=== PATIENT | female | born 1980 | race Caucasian/White ===

== ENCOUNTER 2017-12-11 18:29 | Emergency (ER) | payer MEDICAID ==
[2017-12-11 19:45] VITALS: BP 149/89
[2017-12-11] MEDS ORDERED: HYDROmorphone 0.5 MG/0.5 ML Syringe IVPUSH ONE ×2 (20:04→22:39)
--- NOTE | 2017-12-11 20:10 | EDM.PDOC ---
ED HPI GENERAL MEDICAL PROBLEM - General Chief Complaint: Abdominal Pain Stated Complaint: SEVERE STOMACH PAIN Time Seen by Provider: 12/11/17 19:45 Source of Information: Reports: Patient History Limitations: Reports: No Limitations - History of Present Illness INITIAL COMMENTS - FREE TEXT/NARRATIVE: 37-year-old female with epigastric and upper abdominal pain that has been worsening over the past 10-12 hours. She had a normal bowel movement this morning, but started developing pain around 10 AM and as the day has gone on it' s become worse, persistent, did not respond to antacids or anti-inflammatories and is now starting to radiate into her back. It was hurting to take a deep breath, that seems to be a little better. She denies abdominal distention, fevers, urinary symptoms and she has not had these problems in the past. Onset: Gradual Duration: Hour(s): (10 hours) Location: Reports: Abdomen Severity: Moderate Associated Symptoms: Reports: Loss of Appetite. Denies: Chest Pain, Fever/ Chills, Headaches, Nausea/Vomiting, Shortness of Breath bilat abd pain Pain Score (Numeric/FACES): 7 - Related Data Allergies Allergy/AdvReac Type Severity Reaction Status Date / Time codeine Allergy Abdominal Verified 12/11/17 19:47 Pain lisinopril Allergy Cough Verified 12/11/17 19:47 Home Meds: Home Meds Cholecalciferol (Vitamin D3) [Vitamin D-3] 5,000 unit PO DAILY 12/13/13 [History ] Furosemide [Lasix] 20 mg PO DAILY PRN 12/13/13 [History] Vitamin B Complex 1 each PO DAILY 12/13/13 [History] Iron,Carbonyl/Ascorbic Acid [Iron 100-Vitamin C Tablet] 1 tab PO DAILY 12/03/14 [History] Multivitamin [Multi-Vitamin Daily] 1 tab PO DAILY 12/03/14 [History] Cyanocobalamin (Vitamin B-12) [Vitamin B-12] 1,000 mcg SL DAILY 12/11/17 [ History] Past Medical History Respiratory History: Reports: Bronchitis, Recurrent 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: Neurological History: Reports: Migraines Endocrine/Metabolic History: Reports: Obesity/BMI 30+, Vitamin D Deficiency Hematologic History: Reports: Anemia - Past Surgical History GI Surgical History: Reports: Bariatric Procedure, Cholecystectomy Female Surgical History: Reports: Other (See Below) Other Female Surgeries/Procedures: ovarian cyst removed Social & Family History - Tobacco Use Smoking Status *Q: Current Every Day Smoker Years of Tobacco use: 18 Packs/Tins Daily: 0.5 - Recreational Drug Use Recreational Drug Use: No ED ROS GENERAL - Review of Systems Review Of Systems: See Below Constitutional: Reports: Malaise. Denies: Fever, Chills HEENT: Reports: No Symptoms Respiratory: Denies: Shortness of Breath, Pleuritic Chest Pain Cardiovascular: Denies: Chest Pain GI/Abdominal: Reports: Abdominal Pain, Decreased Appetite. Denies: Constipation , Diarrhea, Nausea, Vomiting : Reports: Other (Some vaginal spotting, she is on the Depo-Provera control and has not missed any doses.). Denies: Dysuria, Flank Pain, Frequency Skin: Reports: No Symptoms Neurological: Reports: No Symptoms Psychiatric: Reports: No Symptoms ED EXAM, GI/ABD - Physical Exam Exam: See Below General Appearance: Alert, Mild Distress (Looks fairly uncomfortable) Eyes: Bilateral: Normal Appearance (No jaundice) Respiratory/Chest: No Respiratory Distress, Lungs Clear Cardiovascular: Regular Rate, Rhythm GI/Abdominal Exam: Normal Bowel Sounds, Soft, Tender (Fairly tender across the upper abdomen, especially directly over the epigastric area with mild guarding and rebound tenderness) Extremities: No: Pedal Edema Neurological: Alert, Oriented Skin Exam: Warm, Dry Course - Vital Signs Last Recorded V/S: Last Vital Signs Temp 97.8 F 12/11/17 19:51 Pulse 78 12/11/17 19:51 Resp 18 12/11/17 19:51 BP 149/89 H 12/11/17 19:51 Pulse Ox 98 12/11/17 19:51 - Orders/Labs/Meds Orders: Active Orders 24 hr Category Date Time Status Abdomen Pelvis w Cont [CT] Stat Exams 12/11/17 20:56 Taken UA W/MICROSCOPIC [URIN] Urgent Lab 12/11/17 21:33 Ordered Labs: Laboratory Tests 12/11/17 12/11/17 12/11/17 Range/Units 20:16 20:16 20:16 WBC 7.8 (4.5-11.0) K/uL RBC 4.56 (3.30-5.50) M/uL Hgb 14.4 (12.0-15.0) g/dL Hct 42.7 (36.0-48.0) % MCV 94 (80-98) fL MCH 32 H (27-31) pg MCHC 34 (32-36) % Plt Count 168 (150-400) K/uL Neut % (Auto) 52 (36-66) % Lymph % (Auto) 28 (24-44) % Atkinson % (Auto) 10 H (2-6) % Eos % (Auto) 10 H (2-4) % Baso % (Auto) 1 (0-1) % Sodium 139 L (140-148) mmol/L Potassium 3.5 L (3.6-5.2) mmol/L Chloride 105 (100-108) mmol/L Carbon Dioxide 24 (21-32) mmol/L Anion Gap 13.5 (5.0-14.0) mmol/L BUN 5 L D (7-18) mg/dL Creatinine 0.6 (0.6-1.0) mg/dL Est Cr Clr Drug Dosing 144.88 mL/min Estimated GFR (MDRD) > 60 (>60) Glucose 94 (74-106) mg/dL Lactic Acid 0.8 (0.4-2.0) mmol/L Calcium 8.0 L (8.5-10.1) mg/dL Total Bilirubin 0.3 (0.2-1.0) mg/dL AST 17 (15-37) U/L ALT 23 (12-78) U/L Alkaline Phosphatase 87 (46-116) U/L Total Protein 5.8 L (6.4-8.2) g/dL Albumin 3.3 L (3.4-5.0) g/dL Globulin 2.5 (2.3-3.5) g/dL Albumin/Globulin Ratio 1.3 (1.2-2.2) Amylase 87 (25-115) U/L Lipase 272 (73-393) U/L Urine Color Urine Appearance Urine pH (4.5-8.0) Ur Specific [place] (1.008-1.030) Urine Protein (NEGATIVE) mg/dL Urine Glucose (UA) (NEGATIVE) mg/dL Urine Ketones (NEGATIVE) mg/dL Urine Occult Blood (NEGATIVE) Urine Nitrite (NEGATIVE) Urine Bilirubin (NEGATIVE) Urine Urobilinogen (NORMAL) mg/dL Ur Leukocyte Esterase (NEGATIVE) Urine RBC (0-5) Urine WBC (0-5) Ur Epithelial Cells Amorphous Sediment Urine Bacteria Urine Mucus 12/11/17 Range/Units 21:33 WBC (4.5-11.0) K/uL RBC (3.30-5.50) M/uL Hgb (12.0-15.0) g/dL Hct (36.0-48.0) % MCV (80-98) fL MCH (27-31) pg MCHC (32-36) % Plt Count (150-400) K/uL Neut % (Auto) (36-66) % Lymph % (Auto) (24-44) % Atkinson % (Auto) (2-6) % Eos % (Auto) (2-4) % Baso % (Auto) (0-1) % Sodium (140-148) mmol/L Potassium (3.6-5.2) mmol/L Chloride (100-108) mmol/L Carbon Dioxide (21-32) mmol/L Anion Gap (5.0-14.0) mmol/L BUN (7-18) mg/dL Creatinine (0.6-1.0) mg/dL Est Cr Clr Drug Dosing mL/min Estimated GFR (MDRD) (>60) Glucose (74-106) mg/dL Lactic Acid (0.4-2.0) mmol/L Calcium (8.5-10.1) mg/dL Total Bilirubin (0.2-1.0) mg/dL AST (15-37) U/L ALT (12-78) U/L Alkaline Phosphatase (46-116) U/L Total Protein (6.4-8.2) g/dL Albumin (3.4-5.0) g/dL Globulin (2.3-3.5) g/dL Albumin/Globulin Ratio (1.2-2.2) Amylase (25-115) U/L Lipase (73-393) U/L Urine Color Yellow Urine Appearance Clear Urine pH 7.0 (4.5-8.0) Ur Specific [place] 1.010 (1.008-1.030) Urine Protein Negative (NEGATIVE) mg/dL Urine Glucose (UA) Normal (NEGATIVE) mg/dL Urine Ketones Negative (NEGATIVE) mg/dL Urine Occult Blood Moderate (NEGATIVE) Urine Nitrite Negative (NEGATIVE) Urine Bilirubin Negative (NEGATIVE) Urine Urobilinogen Normal (NORMAL) mg/dL Ur Leukocyte Esterase Negative (NEGATIVE) Urine RBC 0-5 (0-5) Urine WBC 0-5 (0-5) Ur Epithelial Cells Few Amorphous Sediment Not seen Urine Bacteria Few Urine Mucus Not seen Meds: Medications Discontinued Medications Generic Name Dose Route Start Last Admin Trade Name Raeann PRN Reason Stop Dose Admin Hydromorphone HCl 0.5 mg 12/11/17 20:04 12/11/17 20:32 Dilaudid IVPUSH 12/11/17 20:05 0.5 mg ONETIME ONE Administration Hydromorphone HCl 0.5 mg 12/11/17 22:39 12/11/17 22:53 Dilaudid IVPUSH 12/11/17 22:40 0.5 mg ONETIME ONE Administration Sodium Chloride 1,000 mls @ 500 mls/hr 12/11/17 20:15 12/11/17 20:31 Normal Saline IV 500 mls/hr ASDIRECTED АНДРЕЙ Administration Sodium Chloride 80 mls @ 3 mls/sec 12/11/17 21:30 12/11/17 21:23 Normal Saline IV 3 mls/sec ASDIRECTED АНДРЕЙ Administration Iopamidol 150 ml 12/11/17 21:30 12/11/17 21:23 Isovue-300 (61%) IV 150 ml . DIRECTED АНДРЕЙ Administration - Re-Assessments/Exams Free Text/Narrative Re-Assessment/Exam: 12/11/17 20:10 An IV was started, she'll be hydrated with normal saline and given 0.5 mg of IV Dilaudid. CBC, CMP, lactic acid amylase and lipase were obtained, patient will need a CT scan after labs return. 12/11/17 20:57 Patient improved initially after the dose of Dilaudid but then returned. Labs returned very reassuring with a normal white count, hemoglobin and lactic acid. Electrolytes are normal so patient will be scanned with IV contrast, the abdomen and pelvis. 12/11/17 22:41 CT scan showed a right ovarian cyst, uncomplicated and also chronic renal cyst but nothing to explain acute abdominal pain. The patient's pain persisted and she was given an additional 0.5 mg of IV Dilaudid and the rest of the fluids. I discussed her case with Dr. Soto, he agreed with admission if the patient desired to stay but she elected to try some oral pain medication at home over the next 12-24 hours and return if it doesn't improve. She'll return sooner if worsening. Departure - Departure Time of Disposition: 23:06 Disposition: Home, Self-Care 01 Condition: Fair Clinical Impression: Abdominal pain Qualifiers: Abdominal location: epigastric Qualified Code(s): R10.13 - Epigastric pain - Discharge Information Instructions: Abdominal Pain, Adult, [id number] Referrals: Cecile Falk PA-C [Primary Care Provider] - Forms: ED Department Discharge Care Plan Goals: Use pain medication as prescribed if needed. Increase activity and diet as tolerated and recheck in the next 24 hours if not improving satisfactorily, or return anytime if worsening. - My Orders Last 24 Hours: My Active Orders 12/11/17 20:56 Abdomen Pelvis w Cont [CT] Stat 12/11/17 21:33 UA W/MICROSCOPIC [URIN] Urgent - Assessment/Plan Last 24 Hours: My Active Orders 12/11/17 20:56 Abdomen Pelvis w Cont [CT] Stat 12/11/17 21:33 UA W/MICROSCOPIC [URIN] Urgent
[2017-12-11] MEDS ORDERED: Sodium Chloride 0.9% 1,000 ML IV SCH (20:15)
[2017-12-11] MEDS ORDERED: Iopamidol 612 MG/ML 150 ML Bottle IV SCH (21:30)
[2017-12-11] MEDS ORDERED: Sodium Chloride 0.9% 80 ML IV SCH (21:30)
== END 2017-12-11 22:58 | disposition home or self-care (01) ==
LOC: JP.ED 18:29
DX: R10.13 Epigastric pain (principal); R10.11 Right upper quadrant pain; R10.12 Left upper quadrant pain; F17.210 Nicotine dependence, cigarettes, uncomplicated; Z79.899 Other long term (current) drug therapy; Z88.5 Allergy status to narcotic agent; Z88.8 Allergy status to other drugs, medicaments and biological substances
CPT/HCPCS: 36415; 74177; 80053; 81001; 82150; 83605; 83690; 85025; 99284; J1170; J7030

== ENCOUNTER 2017-12-13 06:03 | Day surgery (SDC) | payer MEDICAID ==
[2017-12-13] MEDS ORDERED: Propofol 200 MG/20 ML SDV ONE (07:23)
[2017-12-13] MEDS ORDERED: fentaNYL 100 MCG/2 ML SDV ONE (07:23)
[2017-12-13] MEDS ORDERED: Midazolam 1 MG/ML 2 ML SDV ONE (07:23)
[2017-12-13 08:56] VITALS: BP 149/90
--- NOTE | 2017-12-14 14:12 | OR ---
DATE OF PROCEDURE: 12/13/2017 PREOPERATIVE DIAGNOSIS: Postprandial abdominal pain, status post Luis-en-Y gastric bypass. POSTOPERATIVE DIAGNOSIS: Normal upper gastrointestinal endoscopic examination, status post Luis-en-Y gastric bypass. OPERATIVE PROCEDURES: Upper GI endoscopy with biopsies of gastric pouch for CLOtest. ANESTHESIA: IV sedation. INDICATION FOR PROCEDURE: This is a 37-year-old status post previous Luis-en-Y gastric bypass, presenting with postprandial abdominal pain. The pain does begin a little bit after eating and is somewhat suggestive of partial small bowel obstruction. To rule out a more proximal area of pathology, she is to undergo an upper GI endoscopy with biopsies and/or dilation as indicated. Potential risks including bleeding and perforation were discussed, and the patient wishes to proceed. DETAILS OF PROCEDURE: The patient was taken to the operating room and placed in a left lateral decubitus position. IV sedation was administered, after which the upper GI endoscope was passed orally through the length of the esophagus and into the gastric pouch, and from there through the gastrojejunostomy roughly 20 cm into the Luis limb. Findings were entirely normal with no areas of inflammation or stricturing. It would appear that the patient's pathology is more distal in the GI tract by history, most likely a partial small bowel obstruction. The biopsies were obtained from the gastric pouch to evaluate the patient's H. pylori status. Minimal bleeding from the biopsy site was seen, and the procedure then concluded. The plan was discussed with the patient postoperatively. The plan would be to proceed with a laparoscopy, if possible laparotomy with release of small bowel obstruction and possible bowel resection. Ideally, this will be done tomorrow, but she has a trip to [place] set up with her children, with which she would lose the entire investment. She has been tolerating liquids, and she will stay on a liquid diet until that time. She is instructed to return sooner if her symptoms become more severe. Otherwise, rescheduled for 12/18/2017, for the above-stated procedure. Fabien Soto MD /[id number]
== END 2017-12-13 09:08 | disposition home or self-care (01) ==
LOC: JP.SDS 06:03
PROVIDERS: ATTEND Surgery
DX: R10.9 Unspecified abdominal pain (principal); Z98.84 Bariatric surgery status
CPT/HCPCS: 43239; 87081; J2250; J2704; J3010

== ENCOUNTER 2017-12-18 09:32 | Inpatient (IN) | payer MEDICAID ==
[~2017-12-18 09:32] MED LIST: Acetaminophen 500 MG Tab PO ONE; Bupivacaine 0.5%/EPINEPHrine 1:200,000 50 ML MDV ONE; Celecoxib 200 MG Cap PO ONE; Dextrose 5%-Lactated Ringers 1,000 ML IV SCH; Gabapentin 300 MG Cap PO ONE; Scopolamine 1.5 MG Transdermal Patch TOP SCH
[2017-12-18] MEDS ORDERED: fentaNYL 250 MCG/5 ML SDV ONE (10:49)
[2017-12-18] MEDS ORDERED: Neostigmine Methylsulfate 1 MG/ML 5 ML Syringe ONE (10:53)
[2017-12-18] MEDS ORDERED: Rocuronium 50 MG/5 ML Vial ONE (10:53)
[2017-12-18] MEDS ORDERED: Ondansetron 4 MG/2 ML SDV ONE (10:53)
[2017-12-18] MEDS ORDERED: Succinylcholine 200 MG/10 ML MDV ONE (10:53)
[2017-12-18] MEDS ORDERED: Dexamethasone 4 MG/ML SDV ONE (10:53)
[2017-12-18] MEDS ORDERED: Glycopyrrolate 0.2 MG/ML 5 ML MDV ONE (10:53)
[2017-12-18] MEDS ORDERED: Propofol 200 MG/20 ML SDV ONE (10:53)
[2017-12-18] MEDS ORDERED: Lidocaine 0.4%/D5W 2 GM/500 ML BAG IV SCH ×2 (11:15)
[2017-12-18] MEDS ORDERED: Lidocaine 2% 100 MG/5 ML Syringe IVPUSH ONE (11:15)
[2017-12-18] MEDS ORDERED: Ropivacaine 50 ML, Dexamethasone 8 MG, EPINEPHrine 0.4 MG, Sodium Chloride 0.9% 27.6 ML NERVRT SCH ×4 (11:15)
[2017-12-18] MEDS ORDERED: Ketamine 500 MG/5 ML MDV IV SCH (11:15)
[2017-12-18] MEDS: cefOXitin 2 GM in Sodium Chloride 0.9% 50 ML IV ONE ×2 (12:30→19:40)
[2017-12-18] MEDS ORDERED: Meropenem 500 MG SDV ONE (13:24)
[2017-12-18] MEDS ORDERED: Lactated Ringers 1,000 ML ONE (13:25)
[2017-12-18] MEDS ORDERED: fentaNYL 100 MCG/2 ML SDV IVPUSH ONE (14:03)
[2017-12-18] MEDS ORDERED: hydrOXYzine HCl 100 MG/2 ML SDV IM ONE (14:03)
[2017-12-18] MEDS ORDERED: Metoclopramide 10 MG/2 ML SDV IVPUSH PRN (16:00)
[2017-12-18] MEDS ORDERED: Labetalol 20 MG/4 ML Syringe IVPUSH PRN (16:00)
[2017-12-18] MEDS ORDERED: Ondansetron 4 MG/2 ML SDV IVPUSH PRN (16:00)
[2017-12-18] MEDS ORDERED: diphenhydrAMINE 50 MG/ML SDV IVPUSH PRN (16:00)
[2017-12-18] MEDS: Acetaminophen Soln 650 MG/20.3 ML UD Cup PO SCH ×2 (16:15→22:23)
[2017-12-18] MEDS ORDERED: MVI, Adult with Vitamin K 10 ML, Thiamine 200 MG, Chromium/Copper/Mang/Selen/Zn 1 ML in... IV SCH ×4 (17:00)
[2017-12-18] MEDS: cefOXitin 2 GM in Sodium Chloride 0.9% 50 ML IV SCH ×2 (17:23→23:36)
[2017-12-18] MEDS ORDERED: Pantoprazole 40 MG Vial IVPUSH SCH (18:00)
[2017-12-18] MEDS: Gabapentin 250 MG/5 ML Solution ML 470 ML Bottle PO SCH (20:22)
[2017-12-18] MEDS: hydrOXYzine HCl 100 MG/2 ML SDV IM PRN (20:23)
[2017-12-18] MEDS: Heparin Sodium 5,000 Units/ML Vial SUBCUT SCH (20:23)
[2017-12-18] MEDS: Dextrose 5%-Lactated Ringers 1,000 ML IV SCH (23:33)
[2017-12-19] MEDS: hydrOXYzine HCl 100 MG/2 ML SDV IM PRN ×2 (02:40→06:56)
[2017-12-19] MEDS ORDERED: Iohexol 647 MG/ML 50 ML SDV PO PRN (02:45)
[2017-12-19] MEDS: Acetaminophen Soln 650 MG/20.3 ML UD Cup PO SCH ×4 (03:34→21:02)
[2017-12-19] MEDS: cefOXitin 2 GM in Sodium Chloride 0.9% 50 ML IV SCH (05:17)
[2017-12-19] MEDS: Dextrose 5%-Lactated Ringers 1,000 ML IV SCH (05:18)
[2017-12-19] MEDS: Gabapentin 250 MG/5 ML Solution ML 470 ML Bottle PO SCH ×3 (08:21→21:02)
[2017-12-19] MEDS: Celecoxib 200 MG Cap PO SCH (08:21)
[2017-12-19] MEDS: Heparin Sodium 5,000 Units/ML Vial SUBCUT SCH ×2 (08:21→20:54)
[2017-12-19] MEDS: SCOPOLAMINE PATCH CHECK TOP SCH (08:22)
[2017-12-19] MEDS ORDERED: hydrOXYzine HCl 100 MG/2 ML SDV IM PRN (09:09)
[2017-12-19] MEDS ORDERED: Dextrose 5%-Lactated Ringers 1,000 ML IV SCH (09:15)
[2017-12-19] MEDS: Docusate Sodium 100 MG Cap PO SCH ×2 (09:58→20:55)
[2017-12-19] MEDS: Magnesium Sulfate/Water 2 GM in Premix Bag 1 BAG IV SCH ×2 (09:58→15:47)
[2017-12-19] MEDS ORDERED: Sodium Ferric Gluconate Cmplex 250 MG in Sodium Chloride 0.9% 100 ML IV SCH (10:30)
[2017-12-19] MEDS ORDERED: hydrOXYzine HCl 25 MG Tab PO PRN (11:00)
[2017-12-19] MEDS: HYDROmorphone 2 MG Tab PO PRN ×3 (11:25→22:17)
[2017-12-19] MEDS ORDERED: MVI, Adult with Vitamin K 10 ML, Thiamine 200 MG, Chromium/Copper/Mang/Selen/Zn 1 ML in... IV SCH ×4 (16:00)
[2017-12-19] MEDS ORDERED: Pantoprazole 40 MG Tab.CR PO SCH (18:00)
[2017-12-19] MEDS ORDERED: Pantoprazole 40 MG Delayed-Release Granules 1 Packet PO SCH (18:00)
[2017-12-20] MEDS: Acetaminophen Soln 650 MG/20.3 ML UD Cup PO SCH (04:06)
[2017-12-20] MEDS: HYDROmorphone 2 MG Tab PO PRN ×3 (04:06→11:30)
[2017-12-20 07:25] VITALS: BP 140/74
[2017-12-20] MEDS ORDERED: Magnesium Hydroxide 400 MG/5 ML Susp 30 ML Cup PO PRN (08:07)
[2017-12-20] MEDS: Celecoxib 200 MG Cap PO SCH (08:20)
[2017-12-20] MEDS: Gabapentin 250 MG/5 ML Solution ML 470 ML Bottle PO SCH (08:20)
[2017-12-20] MEDS: Docusate Sodium 100 MG Cap PO SCH (08:20)
[2017-12-20] MEDS: SCOPOLAMINE PATCH CHECK TOP SCH (08:23)
[2017-12-20] MEDS ORDERED: Sodium Ferric Gluconate Cmplex 250 MG in Sodium Chloride 0.9% 100 ML IV ONE (09:00)
[2017-12-20] MEDS ORDERED: Cyanocobalamin (Vitamin B12) 1,000 MCG/ML SDV IM ONE (09:00)
--- NOTE | 2017-12-20 10:37 | DISCH ---
FINAL DIAGNOSES: 1. Partial small bowel obstruction secondary to strictured junction of Luis limb and jejunojejunostomy along with small bowel volvulus. 2. Distortion of small bowel by traction of mesentery of biliopancreatic limb stump. 3. Bariatric surgery status. 4. Chronic iron deficiency. OPERATIVE PROCEDURES: These were done on 12/18/2017, exploratory laparotomy with; 1. Reduction of small bowel volvulus and closure of internal hernia. 2. Revision of jejunojejunostomy component of Luis-en-Y gastric bypass. 3. Separate resection of small bowel biliopancreatic limb stump. HOSPITAL COURSE: This is a 37-year-old status post Luis-en-Y gastric bypass, presenting with postprandial crampy pain. This occurred primarily to solid intake. After an upper endoscopy last weekend found essentially no problems, it would be clinically deemed that the patient likely had a partial small bowel obstruction. She had to go on a trip and stayed on liquid diet up until the time of readmission. On 12/18/2017, she underwent a limited laparotomy with the above findings being identified. Postoperatively, the patient has done well. She is tolerating a step-3 diet, i.e. a soft solid diet without difficulty and will be discharged home with a combination of Tylenol, gabapentin, and Celebrex. The latter two for 2 weeks and the Dilaudid on a p.r.n. basis. She is passing some flatus. No bowel movement as of yet. She will go home with some milk of magnesia to help stimulate bowels and instructed to stay on step-3 diet until the first appointment, which will be with Cecile Falk at [facility] on 12/28/2017. The patient also has marginally low magnesium of 1.7, and we will send her home with a 1- month supply of magnesium oxide for supplementation as well. With the patient's chronically low iron levels, the patient was given 2 doses of iron gluconate complex, that being a total of 500 mg, as in the past she has had trouble maintaining adequate iron levels, and there have been problems with insurance covering this as an outpatient. The patient will be discharged today after the iron infusion and will follow up with Cecile Falk on 12/28/2017.
--- NOTE | 2017-12-20 11:33 | PN ---
DATE OF SERVICE: 12/19/2017 The patient has been afebrile with stable vital signs. Pain control has been satisfactory. We will go over to exclusively oral pain medication today. She can go up to step-3 diet. Her upper GI x-ray looks good. Magnesium is low, and I will supplement it. Her irons in the past have required IV supplementation, so we will give her 2 doses of ferric gluconate complex, one today and one tomorrow. She may be ready for discharge home tomorrow. Fabien Soto MD /[id number]
--- NOTE | 2017-12-21 08:53 | CR ---
UGI wo KUB HISTORY: eval R -Y GBP FINDINGS: After administration of oral contrast, upright views were obtained. Post operative changes gastric bypass. Surgical drains in place. No evidence for leak. Contrast passes freely into proximal small bowel loops. IMPRESSION: No evidence for leak or obstruction.
--- NOTE | 2017-12-21 09:34 | OR ---
DATE OF PROCEDURE: 12/18/2017 PREOPERATIVE DIAGNOSIS: Partial small bowel obstruction. POSTOPERATIVE DIAGNOSIS: Partial small bowel obstruction associated with small bowel volvulus and distortion of the small bowel by traction of biliopancreatic limb stump at jejunojejunostomy. OPERATIVE PROCEDURES: Exploratory laparotomy with: 1. Reduction of volvulus and closure of internal hernia (34430). 2. Revision of jejunojejunostomy component of Luis-en-Y gastric bypass (94728). 3. Separate resection of small bowel biliopancreatic limb stump (99953). ANESTHESIA: General. MEDICAL RECEPTIONIST MEDICAL ASSISTANT: Cecile Falk PA-C. INDICATIONS FOR PROCEDURE: This is a 37-year-old presenting with a picture of a partial small bowel obstruction. The plan is to proceed with an exploratory laparotomy with limited incision and lysis of adhesions, reduction of any volvulus that might be encountered and small bowel resection as indicated. As reviewed with the patient, should the jejunojejunostomy need to be revised, we would alter the limb length somewhat to allow more sustained weight loss. Potential risks per se including bleeding, infection, leaks from various GI tract closures, possible recurrence of the problem over time, as well as the remote possibility of cardiopulmonary, septic, or hemorrhagic complications leading to were discussed, and the patient wishes to proceed. DETAILS OF PROCEDURE: The patient was taken to the operating room, and after general endotracheal anesthetic was induced, bilateral subcostal transversus abdominis plane blocks were placed using continuous ultrasound. Following this, the abdomen was prepped and draped, and a midline incision from the umbilicus roughly a handsbreadth toward the subxiphoid was made and carried down through the skin, subcutaneous tissue, fascia, and into the peritoneal cavity. At this point, general exploration was undertaken. The patient was noted to have a small bowel volvulus between the limbs of the jejunojejunostomy with roughly half of the small bowel being prolapsed through that area. After that area was reduced, the patient was noted to have a fairly pronounced narrowing of the point where the jejunojejunostomy was performed with the Luis limb coming in at a sharp angle. Due to this being present for some time, this appeared to be somewhat of a persistent defect, and at that point, we decided to proceed with revision of the jejunojejunostomy. At this point, the small bowel was divided at the point where it entered the jejunojejunostomy with the MONI stapler. A small amount of small bowel was then resected to allow adequate mobility of the bowel for subsequent anastomosis. The limb lengths were then marked out, and the final limb lengths after the revision of the jejunojejunostomy had a Luis limb of 140 cm, common limb of 170 cm, and biliopancreatic limb of 210 cm. At the new revised jejunojejunostomy, this was then constructed by anastomosing what had been the distal end of the Luis limb to the continuation of small bowel somewhat distal to the previous jejunojejunostomy with internal firing of the Endo-MONI 60 mm stapler. The common opening was then closed transversely with the same stapler, angles anastomosed, and mesenteric defect approximated with some 3-0 Vicryl stitch. Exploration at this point showed the anastomosis between the biliopancreatic limb and what had been the origin of the common limb was still somewhat distorted by traction of the stump of the biliopancreatic limb and its mesentery, causing a posterior and leftward distortion of that remaining anastomosis. Given this, the biliopancreatic limb stump was then resected as well with MOIN stapler. The underlying mesentery was divided with mesenteric load, and that appeared to satisfactorily free up that previous site of the anastomosis from any significant angulation. Both mesenteric defects at this point were then closed with some 2- 0 silk stitch to provide some permanency for those closures. The abdomen was then irrigated with antibiotic-containing saline solution. The midline incision was then closed with #2 Vicryl stitch, subcutaneous tissue with 2 layers of 3-0 Vicryl stitch, and the skin with annel. Dressing was applied. The patient was taken to the recovery room in satisfactory condition. Physician reproductive healthcare assistant, Cecile Falk played an essential role in assisting in this case, helping to position the patient, retract structures as needed, as well as suturing and cutting sutures when indicated. Her presence improved patient safety and decreased the operative time. Fabien Soto MD /[id number]
== END 2017-12-20 11:54 | disposition home or self-care (01) | DRG 328 ==
LOC: JP.SDS 09:32 → JP.SDSSCHI 09:32 → EDSTATUS 12:45 → JP.2SS 14:00
PROVIDERS: ADMIT Surgery; ATTEND Surgery
PROC: 0DSA0ZZ Reposition Jejunum, Open Approach (ICD-10-PCS; principal; 2017-12-18)
PROC: 0DB90ZZ Excision of Duodenum, Open Approach (ICD-10-PCS; 2017-12-18)
PROC: 0DBA0ZZ Excision of Jejunum, Open Approach (ICD-10-PCS; 2017-12-18)
PROC: 0DQV0ZZ Repair Mesentery, Open Approach (ICD-10-PCS; 2017-12-18)
PROC: 3E0T3BZ Introduction of Anesthetic Agent into Peripheral Nerves and Plexi, Percutaneous Approach (ICD-10-PCS; 2017-12-18)
DX: K56.2 Volvulus (principal); K59.8 Other specified functional intestinal disorders; K46.9 Unspecified abdominal hernia without obstruction or gangrene; F17.210 Nicotine dependence, cigarettes, uncomplicated; E55.9 Vitamin D deficiency, unspecified; Z98.84 Bariatric surgery status; Z88.5 Allergy status to narcotic agent; Z88.8 Allergy status to other drugs, medicaments and biological substances; E61.1 Iron deficiency; E83.42 Hypomagnesemia
CPT/HCPCS: 36415; 74240; 74240-26; 80053; 82728; 83735; 84100; 85025; 88307; A9270-GY; C9113; J0171; J0330; J0694; J1100; J1644; J2001; J2185; J2405; J2704; J2710; J2795; J2916; J3010; J3410; J3411; J3420; J3475; J7030; J7042; J7050; J7120; Q9967

== ENCOUNTER 2018-01-04 16:44 | Emergency (ER) | payer MEDICAID ==
[2018-01-04 18:01] VITALS: BP 130/71
[2018-01-04] MEDS ORDERED: Sodium Chloride 0.9% 10 ML Syringe FLUSH PRN (18:31)
[2018-01-04] MEDS ORDERED: HYDROmorphone 0.5 MG/0.5 ML Syringe IVPUSH ONE (18:31)
[2018-01-04] MEDS ORDERED: Metoclopramide 10 MG/2 ML SDV IV ONE (18:32)
--- NOTE | 2018-01-04 18:38 | EDM.PDOC ---
ED HPI GENERAL MEDICAL PROBLEM - General Chief Complaint: Abdominal Pain Stated Complaint: ABDOMINAL PAIN Time Seen by Provider: 01/04/18 18:19 Source of Information: Reports: Patient, Old Records, RN Notes Reviewed History Limitations: Reports: No Limitations - History of Present Illness INITIAL COMMENTS - FREE TEXT/NARRATIVE: Rudi Dropped off by her mother Chief complaint Abdominal pain History of present illness 37-year-old female, since this morning left-sided and upper abdominal pain. No change in her nausea that she's had for the last few mornings. No vomiting no change in bowel movements. Hospitalized recently and had surgery December 18, 2017 for revision of her Luis-en- Y and correction of a volvulus, this is the first episode of small bowel obstruction that she's ever had and she had her Luis-en-Y done in December 2010. She still on and mashed food post surgery. Intake by mouth has been decreased last few days with decreased appetite and last night when she coughs she had some sharp pain shooting from the left side of her midline abdominal wound. She has had nausea for a few days especially in the morning after her shake She does have an appointment tomorrow with her surgeon. She's also had left oophorectomy for a large ovarian cyst she things was 10 cm. She's been diagnosed with polycystic ovaries and probably has polycystic kidneys as well. No urinary symptoms No fever The pain which has been present all day decreased a little during her wait in emergency. Abdomen Pain Score (Numeric/FACES): 6 - Related Data Allergies Allergy/AdvReac Type Severity Reaction Status Date / Time codeine Allergy Abdominal Verified 01/04/18 18:08 Pain lisinopril AdvReac Cough Verified 01/04/18 18:08 Home Meds: Home Meds Cholecalciferol (Vitamin D3) [Vitamin D-3] 5,000 unit PO DAILY 12/13/13 [History ] Vitamin B Complex 1 each PO DAILY 12/13/13 [History] Multivitamin [Multi-Vitamin Daily] 1 tab PO DAILY 12/03/14 [History] Cyanocobalamin (Vitamin B-12) [Vitamin B-12] 2,500 mcg SL DAILY 12/11/17 [ History] Ascorbic Acid [Vitamin C] 500 mg PO DAILY 12/17/17 [History] Clotrimazole [Clotrimazole 1%] 1 film TOP BID 12/17/17 [History] Ferrous Sulfate [Feosol] 325 mg PO DAILY 12/17/17 [History] HYDROmorphone HCl [Hydromorphone HCl] 2 mg PO Q4H PRN #8 tablet 01/04/18 [Rx] Ondansetron [Ondansetron ODT] 4 mg PO TID PRN #5 tab.rapdis 01/04/18 [Rx] Past Medical History HEENT History: Reports: Sinusitis Respiratory History: Reports: Bronchitis, Recurrent Gastrointestinal History: Reports: Other (See Below) Other Gastrointestinal History: small bowel obstruction ROLL FORMER History: Reports: Neurological History: Reports: Migraines Endocrine/Metabolic History: Reports: Obesity/BMI 30+, Vitamin D Deficiency Hematologic History: Reports: Anemia - Infectious Disease History Infectious Disease History: Reports: Chicken Pox - Past Surgical History GI Surgical History: Reports: Bariatric Procedure, Cholecystectomy, Lysis of Adhesions, Other (See Below) Other GI Surgeries/Procedures: partial revisions of rny Female Surgical History: Reports: Other (See Below) Other Female Surgeries/Procedures: ovarian cyst removed Social & Family History - Tobacco Use Smoking Status *Q: Current Every Day Smoker Years of Tobacco use: 4 Packs/Tins Daily: 0.5 - Caffeine Use Caffeine Use: Reports: Coffee Caffeine Use Comment: 2-3 cups per day. 2-3 diet cokes per day also. - Recreational Drug Use Recreational Drug Use: No ED ROS GENERAL - Review of Systems Review Of Systems: See Below Constitutional: Reports: Decreased Appetite. Denies: Fever, Chills, Weight Gain HEENT: Reports: No Symptoms Respiratory: Reports: No Symptoms Cardiovascular: Reports: No Symptoms Endocrine: Reports: No Symptoms GI/Abdominal: Reports: Abdominal Pain, Decreased Appetite, Nausea. Denies: Constipation, Diarrhea, Vomiting : Reports: No Symptoms Musculoskeletal: Reports: No Symptoms Skin: Reports: Other (Healing midline abdominal surgical wound) Neurological: Reports: No Symptoms Hematologic/Lymphatic: Reports: No Symptoms ED EXAM, GI/ABD - Physical Exam Exam: See Below Exam Limited By: No Limitations General Appearance: Alert, Mild Distress, Other (Looks tired but otherwise well , vital signs normal) Eyes: Bilateral: Normal Appearance Ears: Normal External Exam Throat/Mouth: Normal Inspection, Normal Oropharynx, Normal Voice Head: Atraumatic, Normocephalic Neck: Normal Inspection Respiratory/Chest: No Respiratory Distress, No Accessory Muscle Use Cardiovascular: Normal Peripheral Pulses, Regular Rate, Rhythm GI/Abdominal Exam: Normal Bowel Sounds, Soft, No Distention, No Abnormal Bruit, No Mass, Tender (Especially left upper quadrant, no guarding no rebound), Other (Healing surgical scar no signs of infection or hernia) Back Exam: Normal Inspection, Full Range of Motion Course - Vital Signs Last Recorded V/S: Last Vital Signs Temp 36.7 C 01/04/18 18:06 Pulse 80 01/04/18 18:06 Resp 18 01/04/18 18:06 BP 130/71 01/04/18 18:06 Pulse Ox 99 01/04/18 18:06 - Orders/Labs/Meds Orders: Active Orders 24 hr Category Date Time Status Peripheral IV Care [RC] . DIRECTED Care 01/04/18 18:32 Active UA W/MICROSCOPIC [URIN] Stat Lab 01/04/18 19:31 Ordered Peripheral IV Insertion Adult [OM.PC] Routine Oth 01/04/18 18:31 Ordered Labs: Laboratory Tests 01/04/18 01/04/18 01/04/18 Range/Units 18:42 18:42 19:31 WBC 8.1 (4.5-11.0) K/uL RBC 4.78 (3.30-5.50) M/uL Hgb 14.8 (12.0-15.0) g/dL Hct 44.0 (36.0-48.0) % MCV 92 (80-98) fL MCH 31 (27-31) pg MCHC 34 (32-36) % Plt Count 245 (150-400) K/uL Sodium 142 (140-148) mmol/L Potassium 4.0 (3.6-5.2) mmol/L Chloride 108 (100-108) mmol/L Carbon Dioxide 27 (21-32) mmol/L Anion Gap 7.2 (5.0-14.0) mmol/L BUN 9 D (7-18) mg/dL Creatinine 0.6 (0.6-1.0) mg/dL Est Cr Clr Drug Dosing 144.88 mL/min Estimated GFR (MDRD) > 60 (>60) Glucose 107 H (74-106) mg/dL Calcium 8.7 (8.5-10.1) mg/dL Total Bilirubin 0.3 (0.2-1.0) mg/dL AST 16 (15-37) U/L ALT 25 (12-78) U/L Alkaline Phosphatase 74 (46-116) U/L Total Protein 6.0 L (6.4-8.2) g/dL Albumin 3.2 L (3.4-5.0) g/dL Globulin 2.8 (2.3-3.5) g/dL Albumin/Globulin Ratio 1.1 L (1.2-2.2) Lipase 898 H (73-393) U/L Urine Color Yellow Urine Appearance Clear Urine pH 6.5 (4.5-8.0) Ur Specific [place] 1.010 (1.008-1.030) Urine Protein Negative (NEGATIVE) mg/dL Urine Glucose (UA) Normal (NEGATIVE) mg/dL Urine Ketones 15 H (NEGATIVE) mg/dL Urine Occult Blood Negative (NEGATIVE) Urine Nitrite Negative (NEGATIVE) Urine Bilirubin Negative (NEGATIVE) Urine Urobilinogen Normal (NORMAL) mg/dL Ur Leukocyte Esterase Negative (NEGATIVE) Urine RBC 0-5 (0-5) Urine WBC 0-5 (0-5) Ur Epithelial Cells Rare Amorphous Sediment Not seen Urine Bacteria Rare Urine Mucus Not seen Meds: Medications Discontinued Medications Generic Name Dose Route Start Last Admin Trade Name Bobbyq PRN Reason Stop Dose Admin Hydromorphone HCl 0.5 mg 01/04/18 18:31 01/04/18 19:20 Dilaudid IVPUSH 01/04/18 18:32 0.5 mg ONETIME ONE Administration Hydromorphone HCl 2 mg 01/04/18 21:27 01/04/18 21:41 Dilaudid PO 01/04/18 21:28 2 mg ONETIME ONE Administration Sodium Chloride 1,000 mls @ 250 mls/hr 01/04/18 18:45 01/04/18 19:18 Normal Saline IV 250 mls/hr ASDIRECTED АНДРЕЙ Administration Metoclopramide HCl 5 mg 01/04/18 18:32 01/04/18 19:18 Reglan IV 01/04/18 18:33 5 mg ONETIME ONE Administration Ondansetron HCl 4 mg 01/04/18 21:26 01/04/18 21:41 Zofran Odt PO 01/04/18 21:27 4 mg ONETIME ONE Administration Sodium Chloride 10 ml 01/04/18 18:31 01/04/18 19:20 Saline Flush FLUSH 10 ml ASDIRECTED PRN Administration Keep Vein Open - Re-Assessments/Exams Free Text/Narrative Re-Assessment/Exam: 01/04/18 18:36 37-year-old female, over 2 weeks post abdominal surgery for revision of Luis-en- Y, bowel obstruction and volvulus of the small bowel. Has had other surgical history as well including cholecystectomy. Differential diagnosis includes bowel obstruction, early, obvious, ovarian cyst , renal cyst, renal stone. Labs ordered IV normal saline, Reglan 5 mg, hydromorphone 0.5 mg 01/05/18 03:25 Improve with the medication administered CBC normal Lipase 898 Urinalysis normal Remaining labs noncontributory Patient would like to try management at home Follow-, she has an appointment with surgery tomorrowup See discharge instructions Percocet 2 tablets by mouth prior to discharge Ondansetron 4 mg by mouth Departure - Departure Time of Disposition: 21:00 (Time of discharge estimated) Disposition: Home, Self-Care 01 Clinical Impression: Pancreatitis Qualifiers: Chronicity: acute Pancreatitis type: unspecified pancreatitis type Acute pancreatitis complication: no infection or necrosis Qualified Code(s): K85.90 - Acute pancreatitis without necrosis or infection, unspecified - Discharge Information Prescriptions: HYDROmorphone HCl [Hydromorphone HCl] 2 mg PO Q4H PRN #8 tablet PRN Reason: Moderate to severe pain Ondansetron [Ondansetron ODT] 4 mg PO TID PRN #5 tab.rapdis PRN Reason: Nausea or vomiting Instructions: Acute Pancreatitis, [id number] Referrals: PCP,None [Primary Care Provider] - Forms: ED Department Discharge Additional Instructions: Liquid diet only See your surgeon tomorrow as arranged - My Orders Last 24 Hours: My Active Orders 01/04/18 18:31 Peripheral IV Insertion Adult [OM.PC] Routine 01/04/18 18:32 Peripheral IV Care [RC] . DIRECTED 01/04/18 19:31 UA W/MICROSCOPIC [URIN] Stat - Assessment/Plan Last 24 Hours: My Active Orders 01/04/18 18:31 Peripheral IV Insertion Adult [OM.PC] Routine 01/04/18 18:32 Peripheral IV Care [RC] . DIRECTED 01/04/18 19:31 UA W/MICROSCOPIC [URIN] Stat
[2018-01-04] MEDS ORDERED: Sodium Chloride 0.9% 1,000 ML IV SCH (18:45)
[2018-01-04] MEDS ORDERED: Ondansetron 4 MG Tab.DIS PO ONE (21:26)
[2018-01-04] MEDS ORDERED: HYDROmorphone 2 MG Tab PO ONE (21:27)
== END 2018-01-04 21:44 | disposition home or self-care (01) ==
LOC: JP.ED 16:44
DX: K85.90 Acute pancreatitis without necrosis or infection, unspecified (principal); F17.210 Nicotine dependence, cigarettes, uncomplicated; D64.9 Anemia, unspecified; Z79.899 Other long term (current) drug therapy; Z88.5 Allergy status to narcotic agent; Z88.8 Allergy status to other drugs, medicaments and biological substances
CPT/HCPCS: 36415; 80053; 81001; 83690; 85027; 96361; 96374; 99284; A9270; J1170; J2765; J7030; J7050

== ENCOUNTER 2018-03-18 07:15 | Inpatient (IN) | payer MEDICAID ==
[~2018-03-18 07:15] MED LIST changes: -Celecoxib 200 MG Cap PO ONE; +Scopolamine 1.5 MG Transdermal Patch TOP ONE; -Scopolamine 1.5 MG Transdermal Patch TOP SCH; +cefOXitin 2 GM in Sodium Chloride 0.9% 100 ML IV ONE; +cefOXitin 2 GM in Sodium Chloride 0.9% 50 ML IV ONE
[2018-03-18] MEDS ORDERED: Neostigmine Methylsulfate 1 MG/ML 5 ML Syringe ONE (07:33)
[2018-03-18] MEDS ORDERED: Propofol 200 MG/20 ML SDV ONE (07:33)
[2018-03-18] MEDS ORDERED: Rocuronium 50 MG/5 ML Vial ONE (07:33)
[2018-03-18] MEDS ORDERED: Ondansetron 4 MG/2 ML SDV ONE (07:33)
[2018-03-18] MEDS ORDERED: Dexamethasone 4 MG/ML SDV ONE (07:33)
[2018-03-18] MEDS ORDERED: Glycopyrrolate 0.2 MG/ML 5 ML MDV ONE (07:33)
[2018-03-18] MEDS ORDERED: fentaNYL 250 MCG/5 ML SDV ONE ×2 (07:34→09:52)
[2018-03-18] MEDS ORDERED: Lidocaine 0.4%/D5W 2 GM/500 ML BAG IV SCH (07:45)
[2018-03-18] MEDS ORDERED: Ketamine 500 MG/5 ML MDV IV SCH (07:45)
[2018-03-18] MEDS ORDERED: Ropivacaine 47 ML, Dexamethasone 8 MG, EPINEPHrine 0.4 MG, Sodium Chloride 0.9% 30.6 ML NERVRT SCH ×4 (07:45)
[2018-03-18] MEDS ORDERED: Lidocaine 2% 100 MG/5 ML Syringe IVPUSH ONE (07:45)
[2018-03-18] MEDS: Meropenem 500 MG SDV ONE ×2 (07:52→10:35)
[2018-03-18] MEDS ORDERED: Gabapentin 300 MG Cap PO ONE (09:00)
[2018-03-18] MEDS ORDERED: Acetaminophen 500 MG Tab PO ONE (09:00)
[2018-03-18] MEDS ORDERED: Scopolamine 1.5 MG Transdermal Patch TOP SCH (09:00)
[2018-03-18] MEDS ORDERED: Linezolid 200 MG/100 ML Bag IRR ONE (10:35)
[2018-03-18] MEDS ORDERED: HYDROmorphone/Normal Saline 15 MG/30 ML PCA IV PRN (11:18)
[2018-03-18] MEDS ORDERED: Naloxone 0.4 MG/ML SDV IVPUSH PRN (11:18)
[2018-03-18] MEDS ORDERED: Lactated Ringers 1,000 ML ONE (11:22)
[2018-03-18] MEDS ORDERED: Ondansetron 4 MG/2 ML SDV IV PRN (13:03)
[2018-03-18] MEDS: ceFAZolin 2 GM in Premix Bag 1 BAG IV SCH ×2 (14:22→23:10)
[2018-03-18] MEDS ORDERED: Pantoprazole 40 MG Vial IV SCH (15:00)
[2018-03-18] MEDS ORDERED: Sodium Ferric Gluconate Cmplex 250 MG in Sodium Chloride 0.9% 100 ML IV ONE (16:00)
[2018-03-18] MEDS: Acetaminophen 325 MG Tab PO PRN ×2 (18:12→23:09)
[2018-03-18] MEDS: Dextrose 5%-Lactated Ringers 1,000 ML IV SCH (19:46)
[2018-03-18] MEDS: HYDROmorphone 2 MG Tab PO PRN (23:09)
[2018-03-19] MEDS: Dextrose 5%-Lactated Ringers 1,000 ML IV SCH ×3 (02:51→22:37)
[2018-03-19] MEDS: HYDROmorphone 2 MG Tab PO PRN ×3 (02:58→11:46)
[2018-03-19] MEDS: ceFAZolin 2 GM in Premix Bag 1 BAG IV SCH (07:19)
[2018-03-19] MEDS: Acetaminophen 325 MG Tab PO PRN (07:26)
[2018-03-19] MEDS ORDERED: Sodium Ferric Gluconate Cmplex 250 MG in Sodium Chloride 0.9% 100 ML IV ONE (10:00)
[2018-03-19] MEDS: Cyclobenzaprine 10 MG Tab PO PRN ×3 (10:43→22:35)
--- NOTE | 2018-03-19 11:23 | PN ---
DATE OF SERVICE: 03/19/2018 SUBJECTIVE: Dottie is postoperative day #1. She had bradycardia in the 30s and 40s with lidocaine, it was discontinued. Her Telles catheter has been removed. She has not voided yet. She does report her pain is controlled. REVIEW OF SYSTEMS: Remainder of review of systems negative for any pertinent positives and negatives. OBJECTIVE: GENERAL: Dottie Wagner is a 37-year-old female. Alert and orientated, sitting in bed. VITAL SIGNS: TPR 97.4, 54, 16, and blood pressure 124/67. HEENT: Negative. NECK: Supple. HEART: Regular rate and rhythm. LUNGS: Clear. ABDOMEN: Dressings dry and intact. She has a pressure dressing over hernia site. Instructions were given that she should keep this on over the hernia site for 6 to 8 weeks. Abdominal binder has been on. EXTREMITIES: Without peripheral edema. ASSESSMENT: Diagnostic lap with lysis of extensive adhesions, repair of incarcerated incisional hernia with mesh, repair of incarcerated umbilical hernia with mesh, and placement of Vicryl mesh. Date of surgery, 03/18/2018. PLAN: 1. Dilaudid 2 mg 1 to 2 every 4 hours p.r.n. pain. 2. Keep pressure dressing over hernia site. 3. We will evaluate p.r.n. or in a.m. Cecile Falk PA-C /[id number]
[2018-03-19] MEDS: Pantoprazole 40 MG Tab.CR PO SCH (15:34)
[2018-03-19] MEDS: Acetaminophen/oxyCODONE 325-5 MG Tab PO PRN ×3 (15:34→23:25)
[2018-03-20] MEDS: Acetaminophen/oxyCODONE 325-5 MG Tab PO PRN ×5 (03:16→20:45)
[2018-03-20] MEDS: Cyclobenzaprine 10 MG Tab PO PRN ×3 (05:02→23:27)
[2018-03-20] MEDS ORDERED: Magnesium Citrate Solution 296 ML Bottle PO ONE (09:00)
[2018-03-20] MEDS: Docusate Sodium 100 MG Cap PO SCH ×2 (09:26→20:46)
[2018-03-20] MEDS: Bisacodyl 5 MG Tab PO SCH ×2 (09:26→20:46)
[2018-03-20] MEDS: Pantoprazole 40 MG Tab.CR PO SCH (16:25)
[2018-03-21] MEDS: Acetaminophen/oxyCODONE 325-5 MG Tab PO PRN ×2 (02:21→08:03)
[2018-03-21] MEDS: Cyclobenzaprine 10 MG Tab PO PRN (08:02)
[2018-03-21 08:08] VITALS: BP 132/86
[2018-03-21] MEDS: Docusate Sodium 100 MG Cap PO SCH (09:48)
[2018-03-21] MEDS: Bisacodyl 5 MG Tab PO SCH (09:48)
--- NOTE | 2018-03-22 15:33 | PN ---
DATE OF SERVICE: 03/20/2018 The patient has been afebrile with stable vital signs. She is a little bit uncomfortable this morning and needs to move her bowels. We will give her some magnesium citrate orally, along with Colace and Dulcolax oral tablets. We will discontinue the scopolamine patch at this point. She is instructed that she can get into the shower and probably home tomorrow if her bowels are moving. Fabien Soto MD /[id number]
--- NOTE | 2018-03-23 07:46 | DISCH ---
DATE OF SERVICE: 03/21/2018 FINAL DIAGNOSES: 1. Incarcerated incisional and incarcerated umbilical hernias. 2. Extensive intra-abdominal adhesions. 3. Bariatric surgery status. 4. Iron-deficiency state. OPERATIVE PROCEDURES: Operative procedure was done on 03/18/2018, diagnostic laparoscopy with lysis of extensive adhesions, and: 1. Repair of incarcerated incisional and incarcerated umbilical hernias with mesh. 2. Placement of Vicryl mesh to limit recurrent adhesion formation. SUMMARY: This is a 37-year-old female presenting with a fairly large incisional hernia located in the upper midline incision. On the date of admission, the patient underwent laparoscopic repair of this. She also had an incarcerated umbilical hernia which was repaired concurrently and some Vicryl mesh placed to limit the adhesion formation between the pelvic and abdominal wall and underlying viscera including the mesh. The patient preoperatively was noted to have a low iron level and did receive a total of 500 mg of iron gluconate during the hospitalization. At the time of discharge, she is passing gas, but not moved her bowels as of yet, but does feel comfortable, and tolerating a step-4 diet. She will be discharged home on her usual medications plus Colace 100 mg p.o. b.i.d. to be continued while she is on the narcotics; Flexeril 10 mg p.o. q.6 hours p.r.n. pain, #30, refill x1; Percocet 5/325 mg 1 to 2 tabs q.4 hours p.r.n. pain, #40; and milk of magnesia as needed for constipation. Follow up with Cecile Falk at [facility] on 03/29/2018. She will be instructed to keep pressure over her incision with a binder and focussed pressure such as Kerlix over the area of the hernia for 2 weeks and then p.r.n. Fabien Soto MD /[id number]
--- NOTE | 2018-03-23 07:49 | OR ---
DATE OF PROCEDURE: 03/18/2018 PREOPERATIVE DIAGNOSIS: Incisional hernia. POSTOPERATIVE DIAGNOSES: 1. Incarcerated incisional hernia. 2. Incarcerated umbilical hernia. 3. Extensive intraabdominal adhesions. OPERATIVE PROCEDURES: Diagnostic laparoscopy with lysis of extensive adhesions, and: 1. Repair of incarcerated incisional and incarcerated umbilical hernias with mesh ([id number]). 2. Placement of Vicryl mesh to displace pelvic and abdominal wall along with overlying mesh from underlying viscera to limit recurrent adhesion formation ([id number]). ANESTHESIA: General. MANAGER FINE: Cecile Falk PA-C INDICATIONS FOR PROCEDURE: This is a 37-year-old presenting with an enlarging incisional hernia located in the upper midline incision. Plan is to proceed with diagnostic laparoscopy, laparotomy if necessary, and repair of the hernia with mesh. Potential risks of the procedure including bleeding, infection, injury to underlying viscera, and problems with mesh becoming infected or hernia recurring were all reviewed, and the patient wishes to proceed. DETAILS OF PROCEDURE: The patient was taken to the operating room and after general endotracheal anesthesia was induced, bilateral subcostal transverse abdominis plane blocks were placed. Using continuous ultrasound guidance, the Telles catheter was inserted and the abdomen was prepped and draped. In the left lower quadrant, a transverse incision was made, and the peritoneal cavity entered under direct vision with an Optiview trocar, inflated to 15 mmHg pressure with CO2. The laparoscope was reinserted. No underlying trocar insertion site injuries were seen. Following this, 4 additional 5 mm trocars were placed across the upper and mid abdomen. The patient was noted to have quite extensive adhesions, but exclusively between the omentum and the anterior abdominal and pelvic buckner. These adhesions were taken down with Harmonic Scalpel. At that point, then the area of herniation was evaluated. The incarcerated components to the incisional hernia had been taken down. There was also a tongue of omentum caught in an incarcerated umbilical hernia as well, and this was then turned inward and divided with Harmonic Scalpel as well. Following this, a Ventralight ST mesh with the balloon positioning system was selected. This was an oval mesh with the long axis of 27 cm. At the 2 ends of the long axis on the polypropylene side of the mesh, 2-0 Vicryl sutures were placed, and the mesh was placed in antibiotic-containing saline solution and positioned intraperitoneally. The 2 stab wounds had been placed at the point where the long axis stitches would be pulled up, with the long axis of the mesh being in the vertical midline. An additional small stab wound over the center of the mesh was placed and the sutures were pulled up and then the balloon inflation catheter then pulled up through the middle of the incision and the balloon was then inflated to bring up the mesh against the abdominal wall. The mesh was then circumferentially fixed with 2 rings of absorbable tacking screws. Some additional tacking screws were then placed around the edges of the main incisional hernia as well. At that point, the balloon catheter was deflated and the balloon was removed. Good fixation of the mesh in all locations was confirmed. The patient was felt to be high risk for developing recurrent adhesions between the abdominal wall mesh as well as a pelvic wall to the underlying viscera. Given this, a 12- inch segment of Vicryl mesh was placed underneath the newly placed mesh from down into the pelvis to displace the viscera away from those surfaces. The trocars were then removed, and the fascia at the 12 mm trocar site closed with 0 Vicryl stitch and the skin with a 5-0 Prolene skin stitch as patient has demonstrated allergy to the Vicryl when applied at the skin levels in the past. Direct pressure dressing was applied. The patient was taken to the recovery room in satisfactory condition. Physician engineer first assistant, Cecile Falk PA-C, played an essential role in assisting in this case, helping to position the patient, retract structures as needed as well as suturing and cutting sutures as indicated. Her presence improved patient safety and decreased operative time. Fabien Soto MD /[id number]
== END 2018-03-21 09:50 | disposition home or self-care (01) | DRG 336 ==
LOC: EDSTATUS 07:15 → JP.SDS 08:22 → JP.SDSSCHI 08:22 → JP.MS 11:35
PROVIDERS: ADMIT Surgery; ATTEND Surgery
PROC: 0WUF4JZ Supplement Abdominal Wall with Synthetic Substitute, Percutaneous Endoscopic Approach (ICD-10-PCS; principal; 2018-03-18)
PROC: 0DNU4ZZ Release Omentum, Percutaneous Endoscopic Approach (ICD-10-PCS; 2018-03-18)
PROC: 0DNW4ZZ Release Peritoneum, Percutaneous Endoscopic Approach (ICD-10-PCS; 2018-03-18)
PROC: 3E0M45Z Introduction of Adhesion Barrier into Peritoneal Cavity, Percutaneous Endoscopic Approach (ICD-10-PCS; 2018-03-18)
PROC: 3E0T3BZ Introduction of Anesthetic Agent into Peripheral Nerves and Plexi, Percutaneous Approach (ICD-10-PCS; 2018-03-18)
DX: K43.0 Incisional hernia with obstruction, without gangrene (principal); K91.2 Postsurgical malabsorption, not elsewhere classified; K42.0 Umbilical hernia with obstruction, without gangrene; K66.0 Peritoneal adhesions (postprocedural) (postinfection); I10 Essential (primary) hypertension; Z98.84 Bariatric surgery status; Z98.0 Intestinal bypass and anastomosis status; E53.8 Deficiency of other specified B group vitamins; E53.9 Vitamin B deficiency, unspecified; E50.8 Other manifestations of vitamin A deficiency; E55.9 Vitamin D deficiency, unspecified; E61.1 Iron deficiency
CPT/HCPCS: 81025; 94762; A9270-GY; C1781; C9113; J0171; J0690; J0694; J1100; J1170; J2001; J2020; J2185; J2405; J2704; J2710; J2795; J2916; J3010; J3490; J7030; J7042; J7050; J7120

== ENCOUNTER 2018-12-17 23:24 | Inpatient (IN) | payer MEDICAID ==
[2018-12-18] MEDS ORDERED: HYDROmorphone 1 MG/ML Syringe IVPUSH ONE ×2 (00:40→02:39)
[2018-12-18] MEDS ORDERED: Sodium Chloride 0.9% 10 ML Syringe FLUSH PRN (00:40)
[2018-12-18] MEDS ORDERED: Ondansetron 4 MG/2 ML SDV IVPUSH ONE (00:40)
[2018-12-18] MEDS ORDERED: Iopamidol 612 MG/ML 150 ML Bottle IV STA (00:54)
--- NOTE | 2018-12-18 01:56 | CRLCT ---
INDICATION: Upper abdominal pain TECHNIQUE: CT abdomen and pelvis acquired with IV contrast. 135 mL of Isovue 300 administered. COMPARISON: 12/11/17 FINDINGS: Lower chest: Unremarkable. Liver: Several subcentimeter hepatic low-density lesions again seen compatible with cysts. Spleen: Unremarkable. Pancreas: Unremarkable. Gallbladder and bile ducts: Cholecystectomy. Persistent intra and central extrahepatic biliary dilatation with abrupt termination of the distal CBD seen on image 48 of series 3. Adrenal glands: Unremarkable. Kidneys: No hydronephrosis. Multiple bilateral renal cysts again seen. A punctate nonobstructive left renal lower pole calcification. GI tract: Post gastric bypass changes. Circumferential wall thickening of a short small bowel segment in the right pelvis, adjacent to a small bowel anastomosis, with adjacent edema. Mild regional swirling of a small bowel segment proximal to this area is nonspecific. A normal appendix. No significant pericolonic changes. Vascular structures: Unremarkable. Lymph nodes: A shotty lower abdominal mesenteric lymph node on image 95, nonspecific. Miscellaneous: Small fluid in the anterior lower abdomen and pelvis. No free air. Diastases of the anterior abdominal wall musculature. Pelvic Organs: A 5.6 x 4.6 x 5.7 cm complex right adnexal lesion demonstrating a soft tissue component versus internal debris. No gross uterine or bladder abnormality seen. Bones: Unremarkable for age. IMPRESSION: Segmental enteritis in the right pelvis with adjacent mesenteric edema and small free fluid. A 5.7 cm complex right adnexal lesion. Correlate with pelvic sonography. Biliary dilatation again seen, status post cholecystectomy, with abrupt tapering of the distal CBD. Consider followup MRCP evaluation. Multiple renal cysts again seen. Dictated by Herman Bueno MD @ 12/18/2018 1:54:34 AM Please note that all CT scans at this facility use dose modulation, iterative reconstruction, and/or weight-based dosing when appropriate to reduce radiation dose to as low as reasonably achievable. Dictated by: Herman Bueno MD @ 12/18/2018 01:54:43 (Electronically Signed)
[2018-12-18] MEDS ORDERED: HYDROmorphone 0.5 MG/0.5 ML Syringe IVPUSH PRN (02:44)
[2018-12-18] MEDS ORDERED: HYDROmorphone 1 MG/ML Syringe IVPUSH PRN (02:46)
[2018-12-18] MEDS ORDERED: Ondansetron 4 MG/2 ML SDV IVPUSH PRN (02:47)
[2018-12-18] MEDS ORDERED: Dextrose 5%-Lactated Ringers 1,000 ML IV SCH (03:00)
[2018-12-18] MEDS ORDERED: HYDROmorphone/Normal Saline 15 MG/30 ML PCA IV PRN (08:01)
[2018-12-18] MEDS ORDERED: Naloxone 0.4 MG/ML SDV IV PRN (08:01)
[2018-12-18] MEDS: Acetaminophen/oxyCODONE 325-5 MG Tab PO PRN ×2 (14:56→18:38)
[2018-12-18] MEDS: Dextrose 5%-Lactated Ringers 1,000 ML IV SCH (22:41)
[2018-12-19] MEDS: Acetaminophen/oxyCODONE 325-5 MG Tab PO PRN ×4 (02:58→18:32)
--- NOTE | 2018-12-19 04:43 | CRLCR ---
INDICATION: Possible ileus TECHNIQUE: Abdomen, upright and supine COMPARISON: CT abdomen pelvis 12/18/2018 FINDINGS: Surgical clips are seen within the right upper quadrant of the abdomen. The visualized lung bases are clear. There is suture material projecting over the GE junction. No dilated loops of small bowel are seen to suggest obstruction. A small to moderate amount of retained stool seen throughout the colon. The visualized osseous structures are unremarkable. IMPRESSION: Nonobstructed bowel-gas pattern. Dictated by Ese Thornton MD @ 12/19/2018 4:40:56 AM Dictated by: Ese Thornton MD @ 12/19/2018 04:41:16 (Electronically Signed)
[2018-12-19] MEDS: Dextrose 5%-Lactated Ringers 1,000 ML IV SCH (08:15)
[2018-12-19] MEDS ORDERED: Cyanocobalamin (Vitamin B12) 1,000 MCG/ML SDV IM ONE (09:00)
[2018-12-19] MEDS: Docusate Sodium 100 MG Cap PO SCH ×2 (10:41→21:52)
[2018-12-19] MEDS: Magnesium Sulfate/Water 2 GM in Premix Bag 1 BAG IV SCH ×3 (10:41→21:52)
[2018-12-20] MEDS ORDERED: Sodium Chloride 0.9% 80 ML IV STA (02:59)
[2018-12-20] MEDS ORDERED: Iopamidol 612 MG/ML 150 ML Bottle IV STA (02:59)
[2018-12-20] MEDS ORDERED: Iohexol 647 MG/ML 10 ML SDV PO SCH (03:00)
[2018-12-20] MEDS: Acetaminophen/oxyCODONE 325-5 MG Tab PO PRN (04:05)
[2018-12-20] MEDS: Magnesium Sulfate/Water 2 GM in Premix Bag 1 BAG IV SCH ×3 (04:05→17:33)
--- NOTE | 2018-12-20 04:37 | CRLCT ---
INDICATION: Mesenteric edema. TECHNIQUE: CT abdomen and pelvis acquired with 135 cc Isovue-300 IV contrast. COMPARISON: December 18, 2018. FINDINGS: Lower chest: Unremarkable. Liver: Unremarkable. Normal in size and attenuation. No masses. Gallbladder and bile ducts: Status post cholecystectomy with mild secondary bili dilatation. Pancreas: Unremarkable. No mass or inflammation. Spleen: Unremarkable. Normal in size. No masses. Adrenal glands: Unremarkable. No nodules. Kidneys: Multiple simple appearing bilateral cysts are unchanged. No hydronephrosis. GI tract: Interval decrease in wall thickening regarding right lower quadrant small bowel loops. Swirling and edema in the mesentery also in the right lower quadrant persists. Minimal areas of colonic wall thickening may be due to nondistention or peristalsis. Colitis is unlikely. Normal appendix. Vasculature: Unremarkable. Mesenteric arteries are patent. Lymph nodes: No significant lymphadenopathy. Omentum/Peritoneum/Abdominal Wall: Unremarkable. No sign of mass or infiltration. No free air or significant free fluid. Pelvis: Stable complex right adnexal cystic lesion. Bones: Posterior disc protrusions are present at L3-4 and L5-S1. Otherwise unremarkable. IMPRESSION: 1. Persistent mesenteric swirling and edema in the right lower quadrant. Small bowel thickening in this region has improved. No new abnormality to suggest bowel ischemia or infarction. 2. Stable complex right adnexal cystic lesion. Please note that all CT scans at this facility use dose modulation, iterative reconstruction, and/or weight-based dosing when appropriate to reduce radiation dose to as low as reasonably achievable. Dictated by Alden Cannon MD @ Dec 21 2018 8:27AM Signed by Dr. Alden Cannon @ Dec 21 2018 8:35AM
[2018-12-20] MEDS: Dextrose 5%-Lactated Ringers 1,000 ML IV SCH ×2 (05:34→17:32)
[2018-12-20] MEDS ORDERED: Ketamine 500 MG/5 ML MDV IV SCH ×3 (07:30→12:00)
[2018-12-20] MEDS: Docusate Sodium 100 MG Cap PO SCH (09:17)
--- NOTE | 2018-12-20 09:21 | PN ---
DATE OF SERVICE: 12/20/2018 SUBJECTIVE: Dottie continues to have postprandial abdominal pain. After preoperative evaluation and discussion of possible risks and possible complications by Fabien Soto MD, Dottie wishes to proceed with surgical procedure. OBJECTIVE: GENERAL: Dottie Wagner is a pleasant 38-year-old female. VITAL SIGNS: TPR is 97.4, 58, 16, blood pressure 118/94. HEENT: Negative. NECK: Supple. HEART: Regular rate and rhythm. LUNGS: Clear. ABDOMEN: Generalized tenderness with an increase in tenderness with slight distention in left mid and lower quadrant. EXTREMITIES: Without peripheral edema. ASSESSMENT: 1. Partial small bowel obstruction. 2. Complex right adnexal cyst. PLAN: 1. Schedule and have consent signed for exploratory laparotomy with release of partial small bowel obstruction, possible small bowel resection. 2. Excision of right ovarian complex cyst. General anesthesia, TAP block, ketamine bolus and ketamine infusion. Cefoxitin 2 g IV on-call to OR. Fabien Soto MD, surgeon and n.p.o. Orders to be written postoperatively. Cecile Falk PA-C /[id number]
[2018-12-20] MEDS ORDERED: fentaNYL 250 MCG/5 ML SDV ONE ×2 (09:53→14:11)
[2018-12-20] MEDS ORDERED: Glycopyrrolate 0.2 MG/ML 5 ML MDV ONE (09:54)
[2018-12-20] MEDS ORDERED: Neostigmine Methylsulfate 1 MG/ML 5 ML Syringe ONE (09:54)
[2018-12-20] MEDS ORDERED: Propofol 200 MG/20 ML SDV ONE ×2 (09:54→15:40)
[2018-12-20] MEDS ORDERED: Succinylcholine 200 MG/10 ML MDV ONE (09:54)
[2018-12-20] MEDS ORDERED: Dexamethasone 4 MG/ML SDV ONE (09:54)
[2018-12-20] MEDS ORDERED: Rocuronium 50 MG/5 ML Vial ONE (09:54)
[2018-12-20] MEDS ORDERED: Ondansetron 4 MG/2 ML SDV ONE (09:54)
[2018-12-20] MEDS ORDERED: Ketamine 50 MG in Sodium Chloride 0.9% 49.5 ML IV SCH (12:00)
[2018-12-20] MEDS ORDERED: Ropivacaine 44 ML, dexAMETHasone 8 MG, EPINEPHrine 0.4 MG, Sodium Chloride 0.9% 33.6 ML NERVRT SCH ×4 (12:00)
[2018-12-20] MEDS ORDERED: cefOXitin 2 GM in Sodium Chloride 0.9% 50 ML IV ONE (12:00)
[2018-12-20] MEDS ORDERED: Meropenem 500 MG SDV ONE (12:32)
[2018-12-20] MEDS ORDERED: Lactated Ringers 1,000 ML ONE (14:29)
[2018-12-20] MEDS ORDERED: Bupivacaine 0.5%/EPINEPHrine 1:200,000 50 ML MDV ONE (15:27)
[2018-12-20] MEDS ORDERED: hydrOXYzine HCl 100 MG/2 ML SDV IM ONE (16:02)
[2018-12-20] MEDS ORDERED: Metoclopramide 10 MG/2 ML SDV IVPUSH PRN (17:21)
[2018-12-20] MEDS ORDERED: diphenhydrAMINE 50 MG/ML SDV IVPUSH PRN (17:21)
[2018-12-20] MEDS ORDERED: hydrOXYzine HCl 100 MG/2 ML SDV IM PRN (17:21)
[2018-12-20] MEDS ORDERED: Morphine 2 MG/ML Syringe IVPUSH PRN (17:21)
[2018-12-20] MEDS ORDERED: Labetalol 20 MG/4 ML Syringe IVPUSH PRN (17:21)
[2018-12-20] MEDS ORDERED: Acetaminophen 1,000 MG in Premix Bag 1 BAG IV ONE (18:00)
[2018-12-20] MEDS ORDERED: MVI, Adult with Vitamin K 10 ML, Thiamine 200 MG, Chromium/Copper/Mang/Selen/Zn 1 ML in... IV SCH ×4 (18:00)
[2018-12-20] MEDS ORDERED: Pantoprazole 40 MG Vial IVPUSH SCH (18:00)
[2018-12-20] MEDS: cefOXitin 2 GM in Sodium Chloride 0.9% 50 ML IV SCH (19:47)
[2018-12-20] MEDS: Heparin Sodium 5,000 Units/ML Vial SUBCUT SCH (19:48)
[2018-12-20] MEDS: Morphine 4 MG/ML Syringe IVPUSH PRN (22:16)
[2018-12-20] MEDS: Acetaminophen 500 MG Tab PO SCH (23:55)
[2018-12-21] MEDS: Dextrose 5%-Lactated Ringers 1,000 ML IV SCH ×2 (00:07→06:30)
[2018-12-21] MEDS ORDERED: Iopamidol 612 MG/ML 100 ML Bottle IV SCH (01:45)
[2018-12-21] MEDS: cefOXitin 2 GM in Sodium Chloride 0.9% 50 ML IV SCH ×4 (01:50→20:35)
--- NOTE | 2018-12-21 01:57 | CRLCR ---
Indication: Status post Luis-en-Y Technique: KUB 2 view obtained after administration of oral contrast material Comparison: December 19, 2028 Findings/Impression: : Oral contrast material is seen within the distal esophagus and stomach. There is residual oral contrast from prior exam in the colon. No evidence for extravasation of contrast material. Surgical clips in the right upper quadrant. Skin annel in the lower midline abdominal wall. Small amount of pneumoperitoneum consistent with recent postoperative state. Dictated by Sandra Beltre MD @ Dec 21 2018 1:53AM Signed by Dr. Sandra Beltre @ Dec 21 2018 1:56AM
[2018-12-21] MEDS: Morphine 4 MG/ML Syringe IVPUSH PRN ×3 (02:03→06:37)
[2018-12-21] MEDS: Acetaminophen 500 MG Tab PO SCH ×4 (05:32→23:41)
[2018-12-21] MEDS ORDERED: Dextrose 5%-Lactated Ringers 1,000 ML IV SCH (08:00)
[2018-12-21] MEDS: Docusate Sodium 100 MG Cap PO SCH ×2 (08:51→20:41)
[2018-12-21] MEDS: Celecoxib 200 MG Cap PO SCH (08:51)
[2018-12-21] MEDS: Acetaminophen/oxyCODONE 325-5 MG Tab PO PRN ×4 (08:54→20:31)
[2018-12-21] MEDS: Heparin Sodium 5,000 Units/ML Vial SUBCUT SCH ×2 (08:55→20:32)
[2018-12-21] MEDS ORDERED: Tamsulosin 0.4 MG Cap.ER PO ONE (09:00)
[2018-12-21] MEDS: Sodium Ferric Gluconate Cmplex 250 MG in Sodium Chloride 0.9% 100 ML IV SCH (10:31)
--- NOTE | 2018-12-21 12:55 | PN ---
DATE OF SERVICE: 12/19/2018 The patient has been afebrile with stable vital signs. Oral intake was fairly good yesterday, and she is feeling somewhat better. I think we will watch her situation one more day. We will get a repeat CT scan of the abdomen and pelvis tomorrow morning with IV and oral contrast to assess the mesenteric edema situation. Otherwise, her ferritin level was 40 and that was satisfactory. Her B12 level is on lower end of normal at 424, so we will give her an IM B12 today as well and move up to more of a step 4 regular diet. She will likely be ready for discharge home tomorrow unless we see something surprising on the CT scan or her clinical condition deteriorates. Fabien Soto MD /[id number]
--- NOTE | 2018-12-21 13:01 | PN ---
DATE OF SERVICE: 12/21/2018 The patient has been afebrile with stable vital signs overnight. Urine output has been satisfactory after a Telles catheter was inserted at which time she had 600 mL residual reported. We will leave the Telles catheter in today step 3 diet and oral pain medication. We will try getting the Telles catheter out tomorrow morning. Fabien Soto MD /[id number]
--- NOTE | 2018-12-21 13:45 | PN ---
DATE OF SERVICE: 12/18/2018 The patient has been afebrile with stable vital signs. Her abdominal pain is persistent but less than last night, it would appear. Abdomen showed some mild discomfort in the left side, otherwise appeared to be stable. A CT scan showed some mesenteric edema in the small bowel. At this point, I think we will hold off on doing anything operatively. We will give her step 2 diet today, [employer], and see how this goes from a clinical standpoint. Hopefully, whatever is going on will resolve spontaneously. We will check a ferritin and B12 level on her blood that was drawn last night, as well as supplement those, if those levels are low. Otherwise, recheck some labs and abdominal x-ray tomorrow morning. Fabien Soto MD /[id number]
[2018-12-21] MEDS ORDERED: MVI, Adult with Vitamin K 10 ML, Thiamine 200 MG, Chromium/Copper/Mang/Selen/Zn 1 ML in... IV SCH ×4 (16:00)
[2018-12-21] MEDS ORDERED: Pantoprazole 40 MG Delayed-Release Granules 1 Packet PO SCH (16:30)
[2018-12-21] MEDS ORDERED: Tamsulosin 0.4 MG Cap.ER PO SCH (21:00)
[2018-12-22] MEDS: Acetaminophen/oxyCODONE 325-5 MG Tab PO PRN ×3 (02:52→11:42)
[2018-12-22] MEDS: Acetaminophen 500 MG Tab PO SCH (05:14)
[2018-12-22] MEDS: Celecoxib 200 MG Cap PO SCH (07:37)
[2018-12-22] MEDS: Heparin Sodium 5,000 Units/ML Vial SUBCUT SCH (07:38)
[2018-12-22 07:43] VITALS: BP 131/90
[2018-12-22] MEDS ORDERED: Cyanocobalamin (Vitamin B12) 1,000 MCG/ML SDV IM ONE (09:00)
[2018-12-22] MEDS: Docusate Sodium 100 MG Cap PO SCH (09:05)
[2018-12-22] MEDS: Sodium Ferric Gluconate Cmplex 250 MG in Sodium Chloride 0.9% 100 ML IV SCH (09:50)
--- NOTE | 2018-12-22 09:54 | HP ---
HISTORY OF PRESENT ILLNESS: This is a 38-year-old patient with previous Luis-en-Y gastric bypass with increasing abdominal pain over the last 2 to 3 days. In the past, she has had problems with bowel obstruction and feels that she may be re-developing that at present. A CT scan was obtained, which showed no clear-cut bowel obstruction but did show some mesenteric edema suggestive of some possible problems with small bowel, and given the degree of tenderness, she was admitted for further evaluation. PAST MEDICAL HISTORY: Includes bariatric surgery status, B12 deficiency, episodes of iron- deficiency, and preeclampsia. PAST SURGICAL HISTORY: Multiple upper endoscopies and laparoscopies, the latter primarily for gynecologic issues, which included a left salpingo-oophorectomy. She also had incisional hernia repair with mesh. SOCIAL HISTORY: The patient is . Does not smoke. No significant alcohol. FAMILY HISTORY: No problems with anesthetic issues or bleeding. MEDICATIONS: As per the computer summary page. ALLERGIES: PER THE COMPUTER SUMMARY PAGE. REVIEW OF SYSTEMS: Shows recent picture of feeling somewhat tired, but otherwise unremarkable. PHYSICAL EXAMINATION: VITAL SIGNS: The patient is alert with stable vital signs. HEENT: Unremarkable. HEART: Regular rhythm. Normal S1 and S2. LUNGS: Clear. ABDOMEN: Perhaps mildly distended. Some vague discomfort in left mid abdomen is noted. PELVIC/RECTAL: Deferred. EXTREMITIES: Unremarkable. NEUROLOGIC: Unremarkable. IMPRESSION: Possible early or partial small-bowel obstruction. PLAN: Plan will be to admit the patient for observation and pain control. We will also check an iron level and see if we are in need of iron infusions at this point, as she has needed several of these in the past. We will obtain abdominal x-rays, flat and upright, in the morning as well. For now, we will hold off on doing anything surgical. Fabien Soto MD /[id number]
--- NOTE | 2018-12-22 10:39 | DISCH ---
ADMISSION DIAGNOSES: 1. Partial small bowel obstruction. 2. Ovarian cyst. 3. Abdominal pain. 4. Status post Luis-en-Y gastric bypass surgery. 5. Iron deficiency anemia. 6. Unspecified surgical malabsorption. 7. B12 deficiency. 8. Vitamin D deficiency. DISCHARGE DIAGNOSES: Exploratory laparotomy with lysis of adhesions: 1. Reduction of small bowel volvulus and closure of internal hernia. 2. Small-bowel resection. 3. Secondary enterostomy to reestablish Luis-en-Y small bowel anatomy. 4. Right ovarian cystectomy. 5. Placement of Interceed mesh for small bowel volvulus and marked distention and decompression of the jejunojejunostomy, right ovarian cyst, and extensive intraabdominal adhesions. Date of surgery: 12/20/2018. Surgeon: Fabien Soto MD. HISTORY: Dottie Wagner is a 38-year-old female who presented to the emergency room on 12/18/2018 with abdominal pain. She was treated medically, but continued to have persistent postprandial pain. After preoperative evaluation and discussion of possible risks and possible complications, she wished to proceed with surgical procedure. HOSPITAL COURSE: Dottie had her surgery on 12/20/2018. She had no operative complications. On postoperative day #1, she was started on a step 3 gastric bypass diet. She did have some urinary retention. A Telles catheter was replaced. She was given two iron infusions for ferritin of 40 with history of it decreasing every 2 to 3 months. Her Telles was discontinued later in the day on 12/21/2018. She was able to void without difficulty. On 12/22/2018, activity was good, vital signs stable, oral intake adequate, pain was well managed, and she was able to be discharged to home. PHYSICAL EXAMINATION: GENERAL: Dottie Wagner is a 38-year-old female. VITAL SIGNS: Height is 5 feet 10.87 inches, weight is 197 pounds. TPR is 96.3, 55, 16, blood pressure 131/90. HEENT: Negative. NECK: Supple. HEART: Regular rate and rhythm. LUNGS: Clear. ABDOMEN: Midline staple incision is intact. Abdominal binder is on. EXTREMITIES: Without peripheral edema. DISPOSITION: Discharged to home. CONDITION: Stable and improving. FOLLOWUP APPOINTMENT: With Cecile Falk PA-C, on 12/31/2018 at 10 a.m. HOME MEDICATIONS: 1. Percocet 5/325 mg one tablet every 6 hours p.r.n. pain #28. 2. Tylenol Extra Strength 1000 mg q.6 h. p.r.n. lesser pain. She is to resume home medications: 1. Vitamin D3. 2. Copper 2 mg oral daily. 3. B12 2500 mcg daily. 4. Ferrous sulfate 325 mg oral daily. 5. Folic acid 0.8 mg oral daily. 6. Multivitamin one tablet oral daily. 7. Zofran 4 mg every 4 hours p.r.n. nausea. 8. Potassium bicarbonate, Effer-K 10 mEq daily. 9. Vitamin B complex one daily. 10.Zinc 50 mg daily. DIET: Step 3 gastric bypass diet for 2 weeks. Drink 8 to 10 glasses of water a day. ACTIVITY: No lifting greater than 10 pounds for 6 weeks. Other activity: Walk at least 6 times daily, distance and time as tolerated. Driving: Do not drive for 1 week and while on pain medication. Shower/bathing: May shower. DISCHARGE INSTRUCTIONS: Notify provider if any fever, increased pain, swelling, redness, drainage, nausea, or vomiting. Keep site clean and dry. Use incentive spirometer 10 times every hour while awake.
--- NOTE | 2018-12-22 14:55 | OR ---
DATE OF PROCEDURE: 12/20/2018 SURGEON: Fabien Soto MD PREOPERATIVE DIAGNOSES: 1. Partial small bowel obstruction. 2. Right ovarian cyst. POSTOPERATIVE DIAGNOSES: 1. Small bowel volvulus with marked distention and decompensation of jejunojejunostomy. 2. Right ovarian cyst. 3. Extensive intraabdominal adhesions. OPERATIVE PROCEDURES: Exploratory laparotomy with lysis of adhesions and: 1. Reduction of small bowel volvulus with closure of internal hernia (40911). 2. Small bowel resection (86910). 3. Secondary enteroenterostomy to reconstruct Luis-en-Y small bowel anatomy (13545). 4. Right ovarian cystectomy (76934). 5. Placement of Interceed mesh to displace pelvic and abdominal bucnker from underlying viscera to limit recurrent adhesion formation (34250). ANESTHESIA: General. PIPELINE GANG SUPERVISOR: Cecile Falk PA-C. INDICATIONS FOR PROCEDURE: This is a 38-year-old who was admitted over the weekend with postprandial crampy abdominal pain. Initial CT scan was not overly dramatic in terms of there being some small bowel mesentery, but she continued to be somewhat uncomfortable during in the postprandial period. Given this, the plan is to proceed with exploratory laparotomy for release of likely partial small bowel obstruction. This would involve lysis of adhesions, reduction of any volvulus noted to be present, as well as possible bowel resection. Additionally, the patient has a right ovarian cyst. She is presently 38 and would like not to be menopausal. Given this, we will likely excise the cyst, but leave the primary ovarian substance in place, given her previous left oophorectomy. Potential risks including bleeding, infection, leaks from various GI tract closures, possibility of the underlying mesh becoming infected during the course of the procedure were all reviewed, and the patient wishes to proceed. DETAILS OF PROCEDURE: The patient was taken to the operating room, and after general endotracheal anesthesia was induced, a Telles catheter was inserted, and the abdomen was prepped and draped. A midline incision from just above the umbilicus to roughly a handsbreadth's above the pubis was made and carried down through full-thickness abdominal wall. The underlying mesh was present in all areas of this incision. This was initially incised, and the patient was noted to have some adhesions, primarily between the omentum and mesh. These were taken down. Once these fairly extensive adhesions were taken down, the small bowel could be evaluated. There was general edema and duskiness of much of the small bowel, and this eventually led to the identification of a volvulus in which the jejunojejunostomy had rotated from a [id number] direction through the underlying mesentery. This was initially reduced and, at that point, all of the components of bowel fell into normal location, and the duskiness disappeared with all areas being friable. However, the jejunojejunostomy was strikingly dilated as a unit, roughly the size of baseball, and appeared to be poorly functional at this point, and a decision was made to proceed with resection of that. Meropenem-soaked gauze sponges were then placed along the abdominal wall edges protecting the mesh and, at that point, 3 components of the bowel entering the jejunojejunostomy were divided with MONI annel, as was the underlying mesentery, and this specimen was delivered from the field. GI tract continuity was then established with anastomosis between what had been the distal- most biliopancreatic limb to proximal-most common limb with a [id number] enteroenterostomy with internal firing of the Endo-MONI 60-mm stapler. Common opening was closed transversely with the same stapler, and the angles of anastomosis were reinforced with some 3-0 Vicryl stitch. The mesenteric defect was approximated with a running 2-0 silk stitch to provide some permanency. GI tract continuity was then fully reestablished with the Luis-en-Y anastomosis between what had been the distal-most Luis limb. This was done somewhat more proximal than the previous anastomosis, as the patient had some problems with malabsorptive issues, particularly with iron. This was accomplished with the same sequence of staplers and, again the mesenteric defect in this case was closed with a 2-0 silk stitch to provide some permanency. At this point, the bowel was returned back into the peritoneal cavity. The right ovarian cyst was mobilized upward. This was initially aspirated to allow easier stapling off the cystic component. Once this was accomplished, the cystic component was divided with a series of MONI annel, flush with the main substance of the ovary. Upon removal of the cyst, the remaining ovary was essentially entirely intact and appeared to have good blood supply. At this point, we switched into a closing-heard situation, where new gloves, gowns, and instruments were used, and the meropenem-containing sponges were discarded. The abdomen was then irrigated with meropenem-containing saline solution. To limit recurrent adhesion formation between the mesh, as well as the pelvic and abdominal buckner, Interceed mesh was placed underlying those surfaces, and the mesh was then reconnected using running 0 Prolene stitch. Over this, the fascia was closed with a running #1 Vicryl stitch. Subcutaneous tissue was approximated with 3-0 Vicryl stitch as was a the subdermal stitch used. The skin was closed with annel. Dressing was applied. The patient was taken to the recovery room in a satisfactory condition. The limb lengths, at the completion of the procedure, had a Luis limb length of 85 cm, common limb length of 270 cm, which included now a total common alimentary length of roughly 70 cm longer than preoperatively, and the biliopancreatic limb length was noted to be 380 cm. Physician assistant education director, Cecile Falk, played an essential role in assisting in this case, helping to position the patient, retracting structures as needed, as well as suturing and cutting sutures when indicated, and applying annel. Her presence improved patient safety and decreased the operative time. Fabien Soto MD /[id number]
--- NOTE | 2018-12-25 17:35 | EDM.PDOC ---
ED HPI GENERAL MEDICAL PROBLEM - General Chief Complaint: Abdominal Pain Stated Complaint: ABDOMINAL PAIN Time Seen by Provider: 12/18/18 00:39 Source of Information: Reports: Patient History Limitations: Reports: No Limitations - History of Present Illness INITIAL COMMENTS - FREE TEXT/NARRATIVE: This lady who had a previous Luis-en-Y comes in with a 2 or 3 day history of increasing distention and increasing abdominal pain. Abdomen Pain Score (Numeric/FACES): 6 headache Pain Score (Numeric/FACES): 4 - Related Data Allergies Allergy/AdvReac Type Severity Reaction Status Date / Time codeine Allergy Abdominal Verified 12/18/18 00:02 Pain lisinopril AdvReac Cough Verified 12/18/18 00:02 Home Meds: Home Meds Cholecalciferol (Vitamin D3) [Vitamin D3] 5,000 unit PO DAILY 12/13/13 [History] Vitamin B Complex 1 each PO DAILY 12/13/13 [History] Multivitamin [Multi-Vitamin Daily] 1 tab PO DAILY 12/03/14 [History] Cyanocobalamin (Vitamin B-12) [Vitamin B-12] 2,500 mcg SL DAILY 12/11/17 [ History] Ferrous Sulfate [Feosol] 325 mg PO DAILY 12/17/17 [History] Copper Gluconate [Copper] 2 mg PO DAILY 03/16/18 [History] Folic Acid 0.8 mg PO DAILY 03/16/18 [History] Ondansetron [Ondansetron ODT] 4 mg PO Q4H PRN 03/16/18 [History] Potassium Bicarbonate/Cit Ac [Effer-K 10 Meq Tablet Eff] 10 meq PO DAILY [History] Zinc 50 mg PO DAILY 03/16/18 [History] Acetaminophen [Tylenol Extra Strength] 1,000 mg PO Q6H tablet 12/22/18 [Rx] Acetaminophen/oxyCODONE [Percocet 325-5 MG] 1 tab PO Q6HR PRN #28 tablet [Rx] Past Medical History HEENT History: Reports: Allergic Rhinitis, Sinusitis Cardiovascular History: Reports: Hypertension Respiratory History: Reports: Bronchitis, Recurrent Gastrointestinal History: Reports: Bowel Obstruction, Hiatal Hernia, Other (See Below) Other Gastrointestinal History: small bowel obstruction Genitourinary History: Reports: None 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: Neurological History: Reports: Migraines Endocrine/Metabolic History: Reports: Obesity/BMI 30+, Vitamin D Deficiency Hematologic History: Reports: Anemia, B12 Deficiency, Iron Deficiency - Infectious Disease History Infectious Disease History: Reports: Chicken Pox - Past Surgical History GI Surgical History: Reports: Bariatric Procedure, Cholecystectomy, EGD, Hernia Repair/Other, Lysis of Adhesions, Small Bowel, Other (See Below) Other GI Surgeries/Procedures: partial revisions of rny Female Surgical History: Reports: Other (See Below) Other Female Surgeries/Procedures: ovarian cyst removed Social & Family History - Family History Family Medical History: Noncontributory - Tobacco Use Smoking Status *Q: Current Every Day Smoker Years of Tobacco use: 20 Packs/Tins Daily: 0.5 Used Tobacco, but Quit: No Second Hand Smoke Exposure: No - Caffeine Use Caffeine Use: Reports: Coffee, Soda Caffeine Use Comment: 2-3 cups per day. 2-3 diet cokes per day also. - Recreational Drug Use Recreational Drug Use: No ED ROS GENERAL - Review of Systems Review Of Systems: ROS reveals no pertinent complaints other than HPI. ED EXAM, GENERAL - Physical Exam Exam: See Below Exam Limited By: No Limitations General Appearance: Alert, Mild Distress Respiratory/Chest: Lungs Clear Cardiovascular: Regular Rate, Rhythm GI/Abdominal: Normal Bowel Sounds, Other (Mildly distended vague tenderness to the left mid abdomen) Extremities: Normal Inspection Skin Exam: Warm, Dry Course - Vital Signs Last Recorded V/S: Last Vital Signs Temp 35.7 C 12/22/18 07:41 Pulse 55 L 12/22/18 07:41 Resp 16 12/22/18 07:41 BP 131/90 12/22/18 07:41 Pulse Ox 95 12/22/18 07:41 - Orders/Labs/Meds Labs: Laboratory Tests 12/18/18 12/18/18 12/18/18 Range/Units 00:39 00:45 00:45 WBC 7.5 (4.5-11.0) K/uL RBC 4.24 (3.30-5.50) M/uL Hgb 13.6 (12.0-15.0) g/dL Hct 41.4 (36.0-48.0) % MCV 98 (80-98) fL MCH 32 H (27-31) pg MCHC 33 (32-36) % Plt Count 166 (150-400) K/uL Neut % (Auto) 52 (36-66) % Lymph % (Auto) 31 (24-44) % [place] % (Auto) 8 H (2-6) % Eos % (Auto) 8 H (2-4) % Baso % (Auto) 1 (0-1) % Sodium 143 (140-148) mmol/L Potassium 4.0 (3.6-5.2) mmol/L Chloride 107 (100-108) mmol/L Carbon Dioxide 27 (21-32) mmol/L Anion Gap 13.0 (5.0-14.0) mmol/L BUN 15 D (7-18) mg/dL Creatinine 0.6 (0.6-1.0) mg/dL Est Cr Clr Drug Dosing 143.48 mL/min Estimated GFR (MDRD) > 60 (>60) Glucose 118 H (74-106) mg/dL Calcium 8.9 (8.5-10.1) mg/dL Phosphorus (2.5-4.9) mg/dL Magnesium (1.8-2.4) mg/dL Ferritin (8-388) ng/ml Total Bilirubin 0.3 (0.2-1.0) mg/dL AST 19 (15-37) U/L ALT 30 (12-78) U/L Alkaline Phosphatase 62 (46-116) U/L Total Protein 6.2 L (6.4-8.2) g/dL Albumin 3.4 (3.4-5.0) g/dL Globulin 2.8 (2.3-3.5) g/dL Albumin/Globulin Ratio 1.2 (1.2-2.2) Amylase (25-115) U/L Lipase (73-393) U/L Vitamin B12 (193-986) pg/ml Urine Color Yellow Urine Appearance Clear Urine pH 5.0 (4.5-8.0) Ur Specific Story 1.015 (1.008-1.030) Urine Protein Negative (NEGATIVE) mg/dL Urine Glucose (UA) Normal (NEGATIVE) mg/dL Urine Ketones Negative (NEGATIVE) mg/dL Urine Occult Blood Negative (NEGATIVE) Urine Nitrite Negative (NEGATIVE) Urine Bilirubin Negative (NEGATIVE) Urine Urobilinogen Normal (NORMAL) mg/dL Ur Leukocyte Esterase Moderate (NEGATIVE) Urine RBC 0-5 (0-5) Urine WBC 0-5 (0-5) Ur Epithelial Cells Rare Amorphous Sediment Not seen Urine Bacteria Few Urine Mucus Not seen 12/18/18 12/18/18 12/19/18 Range/Units 00:45 09:58 03:53 WBC 6.5 (4.5-11.0) K/uL RBC 3.97 (3.30-5.50) M/uL Hgb 12.5 (12.0-15.0) g/dL Hct 38.8 (36.0-48.0) % MCV 98 (80-98) fL MCH 32 H (27-31) pg MCHC 32 (32-36) % Plt Count 152 (150-400) K/uL Neut % (Auto) (36-66) % Lymph % (Auto) (24-44) % [place] % (Auto) (2-6) % Eos % (Auto) (2-4) % Baso % (Auto) (0-1) % Sodium (140-148) mmol/L Potassium (3.6-5.2) mmol/L Chloride (100-108) mmol/L Carbon Dioxide (21-32) mmol/L Anion Gap (5.0-14.0) mmol/L BUN (7-18) mg/dL Creatinine (0.6-1.0) mg/dL Est Cr Clr Drug Dosing mL/min Estimated GFR (MDRD) (>60) Glucose (74-106) mg/dL Calcium (8.5-10.1) mg/dL Phosphorus (2.5-4.9) mg/dL Magnesium (1.8-2.4) mg/dL Ferritin 40 (8-388) ng/ml Total Bilirubin (0.2-1.0) mg/dL AST (15-37) U/L ALT (12-78) U/L Alkaline Phosphatase (46-116) U/L Total Protein (6.4-8.2) g/dL Albumin (3.4-5.0) g/dL Globulin (2.3-3.5) g/dL Albumin/Globulin Ratio (1.2-2.2) Amylase (25-115) U/L Lipase 167 (73-393) U/L Vitamin B12 424 (193-986) pg/ml Urine Color Urine Appearance Urine pH (4.5-8.0) Ur Specific Story (1.008-1.030) Urine Protein (NEGATIVE) mg/dL Urine Glucose (UA) (NEGATIVE) mg/dL Urine Ketones (NEGATIVE) mg/dL Urine Occult Blood (NEGATIVE) Urine Nitrite (NEGATIVE) Urine Bilirubin (NEGATIVE) Urine Urobilinogen (NORMAL) mg/dL Ur Leukocyte Esterase (NEGATIVE) Urine RBC (0-5) Urine WBC (0-5) Ur Epithelial Cells Amorphous Sediment Urine Bacteria Urine Mucus 12/19/18 Range/Units 03:53 WBC (4.5-11.0) K/uL RBC (3.30-5.50) M/uL Hgb (12.0-15.0) g/dL Hct (36.0-48.0) % MCV (80-98) fL MCH (27-31) pg MCHC (32-36) % Plt Count (150-400) K/uL Neut % (Auto) (36-66) % Lymph % (Auto) (24-44) % [place] % (Auto) (2-6) % Eos % (Auto) (2-4) % Baso % (Auto) (0-1) % Sodium 143 (140-148) mmol/L Potassium 3.6 (3.6-5.2) mmol/L Chloride 109 H (100-108) mmol/L Carbon Dioxide 26 (21-32) mmol/L Anion Gap 11.6 (5.0-14.0) mmol/L BUN 8 (7-18) mg/dL Creatinine 0.5 L (0.6-1.0) mg/dL Est Cr Clr Drug Dosing 172.18 mL/min Estimated GFR (MDRD) > 60 (>60) Glucose 109 H (74-106) mg/dL Calcium 8.5 (8.5-10.1) mg/dL Phosphorus 3.4 (2.5-4.9) mg/dL Magnesium 1.5 L (1.8-2.4) mg/dL Ferritin (8-388) ng/ml Total Bilirubin 0.4 (0.2-1.0) mg/dL AST 14 L (15-37) U/L ALT 25 (12-78) U/L Alkaline Phosphatase 53 (46-116) U/L Total Protein 5.2 L (6.4-8.2) g/dL Albumin 2.8 L (3.4-5.0) g/dL Globulin 2.4 (2.3-3.5) g/dL Albumin/Globulin Ratio 1.2 (1.2-2.2) Amylase 59 (25-115) U/L Lipase 123 (73-393) U/L Vitamin B12 (193-986) pg/ml Urine Color Urine Appearance Urine pH (4.5-8.0) Ur Specific Story (1.008-1.030) Urine Protein (NEGATIVE) mg/dL Urine Glucose (UA) (NEGATIVE) mg/dL Urine Ketones (NEGATIVE) mg/dL Urine Occult Blood (NEGATIVE) Urine Nitrite (NEGATIVE) Urine Bilirubin (NEGATIVE) Urine Urobilinogen (NORMAL) mg/dL Ur Leukocyte Esterase (NEGATIVE) Urine RBC (0-5) Urine WBC (0-5) Ur Epithelial Cells Amorphous Sediment Urine Bacteria Urine Mucus Meds: Medications Discontinued Medications Generic Name Dose Route Start Last Admin Trade Name Freq PRN Reason Stop Dose Admin Acetaminophen 1,000 mg 12/21/18 00:05 12/22/18 05:14 Tylenol Extra Strength PO 1,000 mg Q6H АНДРЕЙ Administration Bupivacaine HCl/Epinephrine Bitart Confirm 12/20/18 15:27 12/20/18 15:32 Marcaine 0.5%/Epinephrine 1:200,000 Administered 12/20/18 15:28 35 ml Dose Administration 50 ml .ROUTE .STK-MED ONE Celecoxib 200 mg 12/21/18 08:00 12/22/18 07:37 Celebrex PO 200 mg DAILY@0800 АНДРЕЙ Administration Ropivacaine 44 ml/ 0 ml 12/20/18 12:00 12/20/18 14:16 Dexamethasone 8 mg/ NERVRT 80 syringe Epinephrine HCl 0.4 mg/ Sodium ASDIRECTED АНДРЕЙ Administration Chloride 33.6 ml Cyanocobalamin 1,000 mcg 12/19/18 09:00 12/19/18 10:41 Vitamin B12 IM 12/19/18 09:01 1,000 mcg ONETIME ONE Administration Cyanocobalamin 1,000 mcg 12/22/18 09:00 12/22/18 09:05 Vitamin B12 IM 12/22/18 09:01 1,000 mcg ONETIME ONE Administration Dexamethasone Confirm 12/20/18 09:54 Dexamethasone Administered 12/20/18 09:55 Dose 4 mg .ROUTE .STK-MED ONE Diphenhydramine HCl 50 mg 12/20/18 17:21 Benadryl IVPUSH Q4H PRN ITCHING Docusate Sodium 100 mg 12/19/18 09:00 12/20/18 09:17 Colace PO Not Given BID АНДРЕЙ Docusate Sodium 100 mg 12/21/18 09:00 12/22/18 09:05 Colace PO 100 mg BID АНДРЕЙ Administration Fentanyl Confirm 12/20/18 09:53 Sublimaze Administered 12/20/18 09:54 Dose 250 mcg .ROUTE .STK-MED ONE Fentanyl Confirm 12/20/18 14:11 Sublimaze Administered 12/20/18 14:12 Dose 250 mcg .ROUTE .STK-MED ONE Glycopyrrolate Confirm 12/20/18 09:54 Robinul Administered 12/20/18 09:55 Dose 1 mg .ROUTE .STK-MED ONE Heparin Sodium (Porcine) 5,000 units 12/20/18 20:00 12/22/18 07:38 Heparin Sodium SUBCUT Not Given Q12H [facility] Hydromorphone HCl 1 mg 12/18/18 00:40 12/18/18 01:02 Dilaudid IVPUSH 12/18/18 00:41 1 mg ONETIME ONE Administration Hydromorphone HCl 1 mg 12/18/18 02:39 12/18/18 02:46 Dilaudid IVPUSH 12/18/18 02:40 1 mg ONETIME ONE Administration Hydromorphone HCl 0.5 mg 12/18/18 02:44 Dilaudid IVPUSH Q2H PRN moderate pain Hydromorphone HCl 1 mg 12/18/18 02:46 12/18/18 04:46 Dilaudid IVPUSH 1 mg Q2H PRN Administration severe pain Hydromorphone HCl 0 mg 12/18/18 08:01 12/18/18 08:52 Dilaudid [place] 15 Mg In Ns 30 Ml IV 15 mg ASDIRECTED PRN Administration WATER RESOURCES PROGRAM DIRECTOR PAIN CONTROL Protocol Hydroxyzine HCl 75 mg 12/20/18 16:02 12/20/18 16:06 Vistaril IM 12/20/18 16:03 75 mg ONETIME ONE Administration Hydroxyzine HCl 100 mg 12/20/18 17:21 Vistaril IM Q4H PRN pain Sodium Chloride 81 mls @ 3.5 mls/sec 12/18/18 00:54 12/18/18 01:13 Normal Saline IV 12/18/18 00:55 3.5 mls/sec ASDIRECTED STA Administration Dextrose/Lactated Ringer's 1,000 mls @ 150 mls/hr 12/18/18 03:00 12/18/18 04: 00 Dextrose 5%-Lactated Ringers IV 150 mls/hr ASDIRECTED АНДРЕЙ Administration Dextrose/Lactated Ringer's 1,000 mls @ 100 mls/hr 12/18/18 14:15 12/20/18 05: 34 Dextrose 5%-Lactated Ringers IV 100 mls/hr ASDIRECTED АНДРЕЙ Administration Magnesium Sulfate 2 gm/ Premix 50 mls @ 25 mls/hr 12/19/18 10:00 12/20/18 17: 33 IV 12/21/18 05:59 Not Given Q6H АНДРЕЙ Sodium Chloride 80 mls @ 3.5 mls/sec 12/20/18 02:59 12/20/18 03:26 Normal Saline IV 12/20/18 03:00 3.5 mls/sec ASDIRECTED STA Administration Cefoxitin Sodium 2 gm/ Sodium 50 mls @ 100 mls/hr 12/20/18 12:00 12/20/18 14: 13 Chloride IV 12/20/18 12:29 100 mls/hr ONCALL ONE Administration Ketamine HCl 50 mg/ Sodium 50 mls @ 21.24 mls/hr 12/20/18 12:00 Chloride IV ASDIRECTED АНДРЕЙ 5 MCG/KG/MIN Linezolid Confirm 12/20/18 12:32 Zyvox Administered 12/20/18 12:33 Dose 300 mls @ as directed .ROUTE .STK-MED ONE Lactated Ringer's Confirm 12/20/18 14:29 Ringers, Lactated Administered 12/20/18 14:30 Dose 1,000 mls @ as directed .ROUTE .STK-MED ONE Dextrose/Lactated Ringer's 1,000 mls @ 175 mls/hr 12/20/18 17:30 12/21/18 06: 30 Dextrose 5%-Lactated Ringers IV 175 mls/hr ASDIRECTED АНДРЕЙ Administration Acetaminophen 1,000 mg/ Premix 100 mls @ 400 mls/hr 12/20/18 18:00 12/20/18 17:52 IV 12/20/18 18:14 400 mls/hr ONETIME ONE Administration Multivitamins/Minerals 10 ml/ 1,013 mls @ 174.999 mls/hr 12/20/18 18:00 12/20 17:53 Thiamine HCl 200 mg/ Chromium/ IV 174.999 mls/hr Copper/Manganese/Seleni/Zn 1 DAILY@1600 АНДРЕЙ Administration ml/ Dextrose/Lactated Ringer's Cefoxitin Sodium 2 gm/ Sodium 50 mls @ 100 mls/hr 12/20/18 20:00 12/21/18 20: 35 Chloride IV 12/21/18 20:29 100 mls/hr Q6H АНДРЕЙ Administration Ferric Sodium Gluconate 120 mls @ 60 mls/hr 12/21/18 10:00 12/22/18 09:50 Complex 250 mg/ Sodium IV 12/22/18 11:59 60 mls/hr Chloride Q24H АНДРЕЙ Administration Dextrose/Lactated Ringer's 1,000 mls @ 100 mls/hr 12/21/18 08:00 12/21/18 07: 00 Dextrose 5%-Lactated Ringers IV 100 mls/hr ASDIRECTED АНДРЕЙ Administration Multivitamins/Minerals 10 ml/ 1,013 mls @ 100 mls/hr 12/21/18 16:00 12/21/18 15:54 Thiamine HCl 200 mg/ Chromium/ IV 100 mls/hr Copper/Manganese/Seleni/Zn 1 DAILY@1600 АНДРЕЙ Administration ml/ Dextrose/Lactated Ringer's Iohexol 10 ml 12/20/18 03:00 Omnipaque-300 PO . DIRECTED АНДРЕЙ Iopamidol 135 ml 12/18/18 00:54 12/18/18 01:12 Isovue-300 (61%) IV 12/18/18 00:55 150 ml . DIRECTED STA Administration Iopamidol 132 ml 12/20/18 02:59 12/20/18 03:26 Isovue-300 (61%) IV 12/20/18 03:00 150 ml . DIRECTED STA Administration Iopamidol 50 ml 12/21/18 01:45 12/21/18 01:45 Isovue-300 (61%) IV 12/21/18 12:00 100 ml . DIRECTED АНДРЕЙ Administration Ketamine HCl 35 mg 12/20/18 12:00 Ketalar IV ASDIRECTED АНДРЕЙ Labetalol HCl 5 mg 12/20/18 17:21 Normodyne IVPUSH Q5M PRN SBP over 160 OR DBP over 95 Linezolid 600 mg 12/20/18 14:21 12/20/18 14:21 Zyvox IRR 12/20/18 14:22 600 mg .STK-MED ONE Administration Meropenem Confirm 12/20/18 12:32 12/20/18 14:21 Merrem Administered 12/20/18 12:33 500 mg Dose Administration 500 mg .ROUTE .STK-MED ONE Metoclopramide HCl 10 mg 12/20/18 17:21 12/21/18 17:47 Reglan IVPUSH 10 mg Q6H PRN Administration NAUSEA NOT CONTROL BY ZOFRAN Miscellaneous Information 1 ea 12/22/18 10:00 Remove Patch TRDERM 12/22/18 10:01 ONETIME ONE Morphine Sulfate 2 mg 12/20/18 17:21 12/20/18 19:38 Morphine IVPUSH 2 mg Q2H PRN Administration MODERATE PAIN Morphine Sulfate 4 mg 12/20/18 17:21 12/21/18 06:37 Morphine IVPUSH 4 mg Q2H PRN Administration SEVERE PAIN Naloxone HCl 0.1 mg 12/18/18 08:01 Narcan IV ASDIRECTED PRN decreased respiratory rate Neostigmine Methylsulfate Confirm 12/20/18 09:54 Neostigmine Administered 12/20/18 09:55 Dose 5 mg .ROUTE .STK-MED ONE Ondansetron HCl 4 mg 12/18/18 00:40 12/18/18 01:02 Zofran IVPUSH 12/18/18 00:41 4 mg ONETIME ONE Administration Ondansetron HCl 4 mg 12/18/18 02:47 12/18/18 12:27 Zofran IVPUSH 4 mg Q4H PRN Administration Nausea/Vomiting Ondansetron HCl Confirm 12/20/18 09:54 Zofran Administered 12/20/18 09:55 Dose 4 mg .ROUTE .STK-MED ONE Oxycodone/Acetaminophen 1 - 2 tab 12/18/18 14:01 12/20/18 04:05 Percocet 325-5 Mg PO 1 tab Q4H PRN Administration Pain Oxycodone/Acetaminophen 1 tab 12/21/18 07:51 12/22/18 11:42 Percocet 325-5 Mg PO 1 tab Q4H PRN Administration PAIN Pantoprazole Sodium 40 mg 12/20/18 18:00 12/20/18 17:46 Protonix Iv IVPUSH 40 mg Q24H АНДРЕЙ Administration Pantoprazole Sodium 40 mg 12/21/18 16:30 12/21/18 16:32 Protonix Granules PO 40 mg Q24H АНДРЕЙ Administration Propofol Confirm 12/20/18 09:54 Diprivan 20 Ml Administered 12/20/18 09:55 Dose 200 mg .ROUTE .STK-MED ONE Propofol Confirm 12/20/18 15:40 Diprivan 20 Ml Administered 12/20/18 15:41 Dose 200 mg .ROUTE .STK-MED ONE Rocuronium [place] Confirm 12/20/18 09:54 Zemuron Administered 12/20/18 09:55 Dose 50 mg .ROUTE .STK-MED ONE Sodium Chloride 10 ml 12/18/18 00:40 12/18/18 01:09 Saline Flush FLUSH 10 ml ASDIRECTED PRN Administration Keep Vein Open Succinylcholine Chloride Confirm 12/20/18 09:54 Quelicin Administered 12/20/18 09:55 Dose 200 mg .ROUTE .STK-MED ONE Tamsulosin HCl 0.4 mg 12/21/18 09:00 12/21/18 08:51 Flomax PO 12/21/18 09:01 0.4 mg ONETIME ONE Administration Tamsulosin HCl 0.4 mg 12/21/18 21:00 12/21/18 20:41 Flomax PO 0.4 mg BEDTIME АНДРЕЙ Administration - Radiology Interpretation Free Text/Narrative:: CT shows an area that could represent mesenteric edema - Re-Assessments/Exams Free Text/Narrative Re-Assessment/Exam: 12/25/18 17:[address] Sonu Soto and he will admit this patient for observation Departure - Departure Time of Disposition: 03:00 Disposition: Refer to Observation Clinical Impression: Abdominal pain - Discharge Information
== END 2018-12-22 12:00 | disposition home or self-care (01) | DRG 330 ==
LOC: JP.ED 23:24 → UNDOADMOB 12-18 02:42 → JP.MS 12-18 02:42 → OBSVTOIN 12-20 17:13 → INTOOBSV 12-20 17:13
PROVIDERS: ADMIT Surgery; ATTEND Surgery
PROC: 0DBA0ZZ Excision of Jejunum, Open Approach (ICD-10-PCS; principal; 2018-12-20)
PROC: 0DS80ZZ Reposition Small Intestine, Open Approach (ICD-10-PCS; 2018-12-20)
PROC: 0UB00ZZ Excision of Right Ovary, Open Approach (ICD-10-PCS; 2018-12-20)
PROC: 0DQV0ZZ Repair Mesentery, Open Approach (ICD-10-PCS; 2018-12-20)
PROC: 0DNU0ZZ Release Omentum, Open Approach (ICD-10-PCS; 2018-12-20)
PROC: 3E0M05Z Introduction of Adhesion Barrier into Peritoneal Cavity, Open Approach (ICD-10-PCS; 2018-12-20)
DX: K56.2 Volvulus (principal); K91.2 Postsurgical malabsorption, not elsewhere classified; N83.201 Unspecified ovarian cyst, right side; K66.0 Peritoneal adhesions (postprocedural) (postinfection); K46.9 Unspecified abdominal hernia without obstruction or gangrene; Z98.84 Bariatric surgery status; Z98.0 Intestinal bypass and anastomosis status; I10 Essential (primary) hypertension; D50.9 Iron deficiency anemia, unspecified; E55.9 Vitamin D deficiency, unspecified; E53.8 Deficiency of other specified B group vitamins; F17.210 Nicotine dependence, cigarettes, uncomplicated; J30.9 Allergic rhinitis, unspecified; R33.8 Other retention of urine; G43.909 Migraine, unspecified, not intractable, without status migrainosus; Z90.49 Acquired absence of other specified parts of digestive tract; Z90.79 Acquired absence of other genital organ(s); Z90.721 Acquired absence of ovaries, unilateral; Z88.5 Allergy status to narcotic agent; Z88.8 Allergy status to other drugs, medicaments and biological substances
CPT/HCPCS: 36415; 51702; 74019; 74177; 74240; 80053; 81001; 82150; 82607; 82728; 83690; 83735; 84100; 85025; 85027; 88307; A9270-GY; C9113; J0131; J0171; J0330; J0694; J1100; J1170; J1644; J2020; J2185; J2270; J2405; J2704; J2710; J2765; J2795; J2916; J3010; J3410; J3411; J3420; J3475; J3490; J7030; J7042; J7050; J7120; Q9967

== ENCOUNTER 2021-03-28 05:25 | Inpatient (IN) | payer MEDICAID ==
[2021-03-28] MEDS ORDERED: Acetaminophen 500 MG Tab PO ONE (06:15)
[2021-03-28] MEDS ORDERED: Bupivacaine 0.5% 50 ML MDV ONE ×2 (06:41→06:42)
[2021-03-28] MEDS ORDERED: Lidocaine 1% with EPINEPHrine 1:100,000 50 ML MDV ONE (06:42)
[2021-03-28] MEDS ORDERED: Dextrose 5%-Lactated Ringers 1,000 ML IV SCH (06:45)
[2021-03-28] MEDS ORDERED: fentaNYL 250 MCG/5 ML SDV ONE (07:04)
[2021-03-28] MEDS ORDERED: Propofol 200 MG/20 ML SDV ONE (07:04)
[2021-03-28] MEDS ORDERED: Succinylcholine 200 MG/10 ML MDV ONE (07:04)
[2021-03-28] MEDS ORDERED: Dexamethasone 4 MG/ML SDV ONE (07:04)
[2021-03-28] MEDS ORDERED: Ondansetron 4 MG/2 ML SDV ONE (07:04)
[2021-03-28] MEDS ORDERED: Glycopyrrolate 0.2 MG/ML 5 ML MDV ONE (07:04)
[2021-03-28] MEDS ORDERED: Neostigmine Methylsulfate 1 MG/ML 5 ML Syringe ONE (07:04)
[2021-03-28] MEDS ORDERED: Rocuronium 50 MG/5 ML Vial ONE ×2 (07:04→10:00)
[2021-03-28] MEDS ORDERED: ceFAZolin 2 GM in Premix Bag 1 BAG IV ONE (08:00)
[2021-03-28] MEDS ORDERED: Ketamine 21 MG in Sodium Chloride 0.9% 19.79 ML IV SCH (08:00)
[2021-03-28] MEDS ORDERED: Ketamine 500 MG/5 ML MDV IV SCH (08:00)
[2021-03-28] MEDS: Meropenem 500 MG SDV ONE ×2 (08:56→09:40)
[2021-03-28] MEDS ORDERED: fentaNYL 100 MCG/2 ML SDV ONE ×2 (09:44→10:07)
[2021-03-28] MEDS ORDERED: Lactated Ringers 1,000 ML ONE (09:46)
[2021-03-28] MEDS ORDERED: Ondansetron 4 MG/2 ML SDV IVPUSH PRN ×2 (10:49→13:00)
[2021-03-28] MEDS ORDERED: diphenhydrAMINE 50 MG/ML SDV IVPUSH PRN (10:49)
[2021-03-28] MEDS ORDERED: diphenhydrAMINE 25 MG Cap PO PRN (10:49)
[2021-03-28] MEDS ORDERED: hydrOXYzine HCL 100 MG/2 ML SDV IM ONE (10:49)
[2021-03-28] MEDS ORDERED: Naloxone 0.4 MG/ML SDV IVPUSH PRN (10:49)
[2021-03-28] MEDS: HYDROmorphone/Normal Saline 15 MG/30 ML PCA IV PRN (10:57)
[2021-03-28] MEDS ORDERED: Naloxone 0.4 MG/ML SDV IV PRN (11:00)
[2021-03-28] MEDS ORDERED: hydrOXYzine HCL 100 MG/2 ML SDV IM PRN (13:00)
[2021-03-28] MEDS: ceFAZolin 2 GM in Premix Bag 1 BAG IV SCH (15:02)
[2021-03-28] MEDS: Pantoprazole 40 MG Vial IVPUSH SCH (15:02)
[2021-03-28] MEDS: Acetaminophen 500 MG Tab PO SCH ×2 (15:03→20:21)
[2021-03-28] MEDS: Celecoxib 200 MG Cap PO SCH (21:34)
[2021-03-28] MEDS: Dextrose 5%-Lactated Ringers 1,000 ML IV SCH (22:30)
[2021-03-29] MEDS: ceFAZolin 2 GM in Premix Bag 1 BAG IV SCH ×2 (00:10→07:28)
[2021-03-29] MEDS: HYDROmorphone/Normal Saline 15 MG/30 ML PCA IV PRN (01:45)
[2021-03-29] MEDS: Acetaminophen 500 MG Tab PO SCH ×4 (03:05→20:11)
[2021-03-29] MEDS: Dextrose 5%-Lactated Ringers 1,000 ML IV SCH (05:32)
--- NOTE | 2021-03-29 07:57 | PN ---
DATE OF SERVICE: 03/29/2021 SUBJECTIVE: Dottie is postop day #1. Pain is controlled with the PROFESSOR OF GENETICS. She has been up ambulating. Oral intake 1350 and output 725. She has no concerns or questions. OBJECTIVE: GENERAL: Dottie Wagner is a pleasant 40-year-old female. She is alert and orientated, color pale. VITAL SIGNS: TPR is 97.5, 62, 16, and blood pressure 115/64. HEENT: Negative. NECK: Supple. HEART: Regular rate and rhythm. LUNGS: Clear. ABDOMEN: Dressing dry and intact. Abdominal binder is on. EXTREMITIES: Without peripheral edema. ASSESSMENT: 1. Exploratory laparotomy with lysis of adhesions. a. Repair of recurrent incarcerated incisional and recurrent incarcerated umbilical hernia (no permanent mesh). b. Removal of intraperitoneal mesh. c. Excision of peritoneal nodules x2. 2. Placement of Interceed mesh x2. POSTOPERATIVE DIAGNOSES: 1. Recurrent incarcerated incisional and recurrent incarcerated umbilical hernia. 2. Removal of foreign body reaction to previous placed mesh. 3. Peritoneal nodules x3 anterior abdominal wall one is 3 cm, the next is 6 cm, and the next one is 12 cm. Fluid was sent for cytology. Date of procedure 03/28/2021. Surgeon: Fabien Soto MD. PLAN: 1. Decrease IV to 100 mL per hour at 1800. 2. Full liquid diet. 3. Colace 100 mg p.o. b.i.d. 4. Dulcolax 10 mg tablets b.i.d. p.o. 5. Discontinue Telles. 6. May shower. Leave Aquacel dressing on. 7. Continue incentive spirometer 10 times every hour while awake. Continue ambulation. We will evaluate p.r.n. or in a.m. Cecile Falk PA-C /[id number]
[2021-03-29] MEDS: Docusate Sodium 100 MG Cap PO SCH ×2 (09:26→20:12)
[2021-03-29] MEDS: Vitamin A 10,000 Unit Cap PO SCH (09:26)
[2021-03-29] MEDS: Celecoxib 200 MG Cap PO SCH ×2 (09:26→20:12)
[2021-03-29] MEDS: Bisacodyl 5 MG Tab PO SCH ×2 (09:26→20:12)
[2021-03-29] MEDS: Pantoprazole 40 MG Vial IVPUSH SCH (15:26)
[2021-03-29] MEDS: Cyclobenzaprine 10 MG Tab PO PRN (20:23)
[2021-03-30] MEDS: Dextrose 5%-Lactated Ringers 1,000 ML IV SCH ×2 (01:32→13:49)
[2021-03-30] MEDS: Acetaminophen 500 MG Tab PO SCH ×4 (01:32→21:28)
[2021-03-30] MEDS: HYDROmorphone/Normal Saline 15 MG/30 ML PCA IV PRN (02:47)
[2021-03-30] MEDS: Cyclobenzaprine 10 MG Tab PO PRN ×3 (04:16→23:03)
[2021-03-30] MEDS ORDERED: Bisacodyl 10 MG Supp RECTAL PRN (06:52)
[2021-03-30] MEDS: Celecoxib 200 MG Cap PO SCH ×2 (08:04→22:05)
[2021-03-30] MEDS: Bisacodyl 5 MG Tab PO SCH ×2 (08:04→22:06)
[2021-03-30] MEDS: Docusate Sodium 100 MG Cap PO SCH ×2 (08:04→22:06)
[2021-03-30] MEDS: Vitamin A 10,000 Unit Cap PO SCH (08:05)
[2021-03-30] MEDS: HYDROmorphone 2 MG Tab PO PRN ×2 (10:42→16:22)
[2021-03-30] MEDS ORDERED: Pantoprazole 40 MG Tab.CR PO SCH (16:00)
[2021-03-30] MEDS ORDERED: Acetaminophen 325 MG Tab PO PRN (20:07)
[2021-03-30] MEDS: Acetaminophen/oxyCODONE 325-5 MG Tab PO PRN (22:06)
[2021-03-31 02:00] VITALS: BP 131/75; PULSE 66
[2021-03-31] MEDS: Dextrose 5%-Lactated Ringers 1,000 ML IV SCH (02:01)
[2021-03-31] MEDS: Acetaminophen/oxyCODONE 325-5 MG Tab PO PRN ×2 (02:01→07:25)
[2021-03-31] MEDS: Cyclobenzaprine 10 MG Tab PO PRN (07:25)
--- NOTE | 2021-03-31 08:43 | PN ---
DATE OF SERVICE: 03/30/2021 SUBJECTIVE: Dottie is postop day 2. Pain has been controlled with the TAPE EDGE MACHINE OPERATOR. She is not passing gas. Oral intake was 2940, output 2100 and pain is controlled, activity good, vital signs stable. No other concerns or questions. OBJECTIVE: GENERAL: Dottie Wagner is a pleasant 40-year-old female. She is alert and orientated. VITAL SIGNS: TPR is 97.3, 64, and 16. Blood pressure 104/48. HEENT: Negative. NECK: Supple. HEART: Regular rate and rhythm. LUNGS: Clear. ABDOMEN: Dressings dry and intact. Abdominal binder is on. She does have an Aquacel dressing on. EXTREMITIES: Without peripheral edema. ASSESSMENT: 1. Exploratory laparotomy with lysis of adhesions. a. Repair of recurrent incarcerated incisional hernia and recurrent incarcerated umbilical hernia (no permanent mesh). b. Removal of intraperitoneal mesh. c. Excision of peritoneal nodules x2. 2. Placement of Interceed mesh x2. POSTOPERATIVE DIAGNOSES: 1. Recurrent incarcerated incisional and recurrent incarcerated umbilical hernia. 2. Removal of foreign body reaction to previous placed mesh. 3. Peritoneal nodules x3 anterior abdominal wall; one is 3 cm, the next one is 6 cm, and the next one is 12 cm. Fluid was sent for cytology. Date of procedure 03/28/2021. Surgeon: Fabien Soto MD. PLAN: 1. Discontinue TAPE EDGE MACHINE OPERATOR and continuous pulse ox. 2. Dilaudid 2 mg q.4 hours p.r.n. pain. 3. Dulcolax suppositories b.i.d. p.r.n. constipation. 4. We will evaluate p.r.n. or in a.m. 5. Plan discharge in a.m. Cecile Falk PA-C /[id number]
--- NOTE | 2021-03-31 10:31 | DISCH ---
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 DISCHARGE DIAGNOSES: 1. Exploratory laparotomy with lysis of adhesions. a. Repair of recurrent incarcerated incisional hernia and recurrent incarcerated umbilical hernia (no permanent mesh). b. Removal of intraperitoneal mesh. c. Excision of peritoneal nodules x2. d. Placement of Interceed mesh x2. POSTOPERATIVE DIAGNOSES: 1. Recurrent incarcerated incisional and recurrent incarcerated umbilical hernia. 2. Removal of foreign body, reaction to previous placed mesh. 3. Peritoneal nodules x3, anterior abdominal wall, one is 3 cm, the next is 6 cm, and the next is 12 cm. Fluid was sent to cytology. Date of procedure: 03/28/2021. Surgeon: Fabien Soto MD HISTORY: Dottie Wagner had a recurrent incarcerated incisional hernia. After preoperative evaluation and discussion of possible risks and possible complications, she wished to proceed with surgical procedure. HOSPITAL COURSE: Dottie had her surgery on 03/28/2021. She had no operative complications. On postop day 1, she was started on a full-liquid diet. IV was decreased to 100 mL per hour. Her Telles was discontinued, and she was started on bowel stimulation. On postop day 2, she was changed to Dilaudid oral pain medication, which caused some nausea, so she was changed to Percocet which helped with the nausea. She did have a bowel movement. She was ambulating. Pain was controlled. Vital signs stable and able to be discharged to home on 03/31/2021 with no complications. PHYSICAL EXAMINATION: GENERAL: Dottie Wagner is a pleasant 40-year-old female. She is alert and oriented. VITAL SIGNS: Height 5 feet 11.5 inches, weight is 221 pounds. BMI is 30. 97, 66, 18, blood pressure 131/75. HEENT: Negative. NECK: Supple. HEART: Regular rate and rhythm. LUNGS: Clear. ABDOMEN: Aquacel was on. This will be replaced prior to discharge. Abdominal binder on with pressure dressing over hernia site. EXTREMITIES: Without peripheral edema. DISPOSITION: Discharged to home. CONDITION: Stable and improving. FOLLOWUP APPOINTMENT: Cecile Falk PA-C, on 04/10/2021 at 9 a.m. HOME MEDICATIONS: 1. Percocet 5/325 mg 1 tab p.o. q.4 hours p.r.n. pain, #12. 2. Flexeril 10 mg p.o. q.8 hours p.r.n. muscle spasms, #30. 3. Celebrex 200 mg p.o. b.i.d., #28. 4. Tylenol 1000 mg q.8 hours p.r.n. pain, but reminded to add up her Tylenol, mg not to exceed 4 g in 24 hours. She is to resume all home medications and supplements. DIET: Step 3 gastric bypass diet. Drink 8 to 10 glasses of water a day. ACTIVITY: No lifting greater than 10 pounds for 6 weeks. Walk 6 times daily. Driving: Do not drive for 1 week or within 8 hours of taking pain Percocet. May shower. Keep operative site clean and dry. Take off Aquacel dressing in 3 days, Thursday, and wear abdominal binder for 6 weeks. Notify provider if any fever, increased pain, swelling, redness, drainage, nausea, or vomiting. SPECIAL INSTRUCTION: Use incentive spirometer 10 times every hour while awake for 1 week. /[id number]
--- NOTE | 2021-04-01 14:03 | OR ---
DATE OF PROCEDURE: 03/28/2021 SURGEON: Fabien Soto MD PREOPERATIVE DIAGNOSES: 1. Recurrent incisional hernia. 2. Recurrent umbilical hernia. POSTOPERATIVE DIAGNOSES: 1. Recurrent incarcerated incisional and recurrent incarcerated umbilical hernias. 2. Intense foreign body reaction to previously-placed mesh. 3. Peritoneal nodules x3 underlying anterior abdominal wall. PROCEDURES PERFORMED: Exploratory laparotomy with lysis of adhesions: 1. Repair of recurrent incarcerated incisional hernia (88872). 2. Repair of recurrent incarcerated umbilical hernia (85479). 3. Removal of intraperitoneal mesh (80301). 4. Removal of peritoneal nodules x3 underlying anterior abdominal wall: a. A 3 mm nodule, left upper anterior abdominal wall (00427). b. Excision of 6 cm intraperitoneal nodule underlying right upper anterior abdominal wall (72955). c. Excision of 12 cm elongated peritoneal nodule underlying mid to right anterior abdominal wall (63582). 5. Placement of Interceed mesh x2 to limit recurrent adhesion formation between abdominopelvic wall and underlying viscera (51766). ANESTHESIA: General. SUPERVISOR TOWER: Cecile Falk PA-C INDICATIONS FOR PROCEDURE: The patient presents with evident large recurrent increasingly symptomatic incisional hernia located in the supraumbilical area more or less across much of the epigastrium beginning around 3 fingerbreadths below the xiphoid. The patient also has what appears to be a separate umbilical hernia. The patient had previously repaired hernias in this area with a mesh. The plan is to proceed with exploratory laparotomy with repair of hernias with other procedures as indicated. Potential risks including bleeding, infection, recurrence of the hernia, problems with mesh becoming infected, as well as the possibility of cardiopulmonary, septic, or hemorrhagic complications leading to were discussed, and the patient wishes to proceed. DETAILS OF PROCEDURE: The patient was taken to the operating room and placed in a supine position. After general endotracheal anesthesia was induced, the abdomen was prepped and draped. A midline incision was then made beginning initially above the umbilicus, this continued somewhat below the umbilicus to allow adequate exposure to the entire field of dissection. Upon entering the peritoneal cavity, a somewhat surprising finding was that of a large amount of peritoneal fluid present. This was clear serous fluid. Peritoneal cytology was obtained. There was initially some concern this might be reflective of intraperitoneal malignancy such as carcinoma, but eventually it became clear this was a somewhat idiopathic intense foreign body reaction to the previously placed mesh. The mesh itself did not appear to be infected. During the course of dissection, again to rule out any malignancy, 3 peritoneal nodules were identified; one was a 3 mm nodule in the left anterior abdominal wall, a 6 cm nodule in the right upper abdominal wall, and a 12 cm nodule in the right mid abdominal wall. These were all frond-like, elongated, nodular lesions and were sent separately for histologic evaluation. Eventually, it became evident that there again was probably a foreign body reaction to the mesh in addition to recurrence of hernias. The mesh was then dissected free from the underlying viscera with the aid of some surgical annel, removing some adherent omentum out of the mesh, and the mesh was then dissected away from the abdominal wall circumferentially and removed. At that point, it became evident that the remainder of the abdomen was free of any evidence of any findings suggestive of malignancy and dealing with more of an idiopathic somewhat unusual intense foreign body reaction to the previously placed mesh. Given this, we decided not to place any additional mesh, but proceed with hernia repairs using a primary closure, knowing that the hernias could have a recurrence and that, at some point, should that occur, some judgment would be required in terms of how to repair this even using a different mesh substance or a component separation technique. There were 2 distinct hernias; one was of a recurrent umbilical hernia which contained some incarcerated omentum, and a recurrent incisional hernia which contained incarcerated omentum and some loops of small bowel as well that had been dissected free. At this point, the abdomen was irrigated with meropenem and Zyvox-containing saline solution. The midline fascia beginning at the level of the umbilicus and continuing upward through the midline was then accomplished with #2 Vicryl stitch. Prior to closure of the abdominal wall, 2 Interceed meshes were placed underneath it and down toward the pelvis to limit recurrent adhesion formation, and the final closure of the fascia was completed. The subcutaneous tissue was approximated with some 3-0 and 4-0 Vicryl stitch deep and annel for the skin. A dressing was applied. The patient was taken to the recovery room in satisfactory condition. Physician community relations assistant, Cecile Falk, played an essential role in assisting in this case, helping to position the patient, retract structures as needed, as well as suturing and cutting sutures when indicated. Her presence improved the patient's safety and decreased the operative time. Fabien Soto MD /[id number]
== END 2021-03-31 07:30 | disposition home or self-care (01) | DRG 354 ==
LOC: JP.SDS 05:25 → EDSTATUS 07:15 → JP.MS 08:25
PROVIDERS: ADMIT Surgery; ATTEND Surgery
PROC: 0WQF0ZZ Repair Abdominal Wall, Open Approach (ICD-10-PCS; principal; 2021-03-28)
PROC: 0WQF0ZZ Repair Abdominal Wall, Open Approach (ICD-10-PCS; 2021-03-28)
PROC: 0DBW0ZZ Excision of Peritoneum, Open Approach (ICD-10-PCS; 2021-03-28)
PROC: 0DBW0ZZ Excision of Peritoneum, Open Approach (ICD-10-PCS; 2021-03-28)
PROC: 0DBW0ZZ Excision of Peritoneum, Open Approach (ICD-10-PCS; 2021-03-28)
PROC: 0WPF0JZ Removal of Synthetic Substitute from Abdominal Wall, Open Approach (ICD-10-PCS; 2021-03-28)
PROC: 3E0M05Z Introduction of Adhesion Barrier into Peritoneal Cavity, Open Approach (ICD-10-PCS; 2021-03-28)
DX: K43.0 Incisional hernia with obstruction, without gangrene (principal); K91.2 Postsurgical malabsorption, not elsewhere classified; T83.718A Erosion of other implanted mesh to organ or tissue, initial encounter; E53.8 Deficiency of other specified B group vitamins; K66.8 Other specified disorders of peritoneum; K42.0 Umbilical hernia with obstruction, without gangrene; Z88.5 Allergy status to narcotic agent
CPT/HCPCS: 81025; 88112; 88302; 88305; 88342; 94762; A9270-GY; C9113; J0171; J0330; J0690; J1100; J1170; J2020; J2185; J2405; J2704; J2710; J2795; J3010; J3410; J3490; J7120; J7121